=== PATIENT | female | born 1930 | race Caucasian/White ===

== ENCOUNTER 2017-09-05 11:24 | Inpatient (IN) | payer MEDICARE, OTHER ==
[~2017-09-05] VITALS: Ht 160 cm; Wt 78.9 kg
[~2017-09-05 11:24] MED LIST: AMOXICILLIN 50500 M1; AMOXICILLIN 50500 MG PO; ASPIRIN EC81 M1; ASPIRIN EC81 M1 PO; ATENOLOL 25MG T25 M1; ATENOLOL 50MG T50 M1 PO; BISACODYL SUPP10 MG RECTAL; CALCIUM + D SO1 EACH PO; CALCIUM 600 +1 EAC1 PO; CARDIO PO; CARDIZEM CD 30300 M1 PO; CARDIZEM CD180 MG PO; CARTIA XT; CIPRO500 MG PO; CO Q-10100 MG PO; CO Q-1050 MG PO; COLACE100 MG PO; COUMADIN 1MG TAB1 M1 PO; COUMADIN 2 MG TA2 M1 PO; FLAGYL500 M1 PO; FLAGYL500 MG PO; FUROSEMIDE 20 M20 MG; LASIX 20 MG TAB20 MG PO; METAMUCIL PAC1 UDPKT PO; MIACALCIN; MILK OF MA2400 MG/10 PO; MIRALAX17 G1 PO; MIRALAX17 GM PO; MULTIVITAMINS1 EAC7; MULTIVITAMINS1 EAC7 PO; NITROFURANTOIN100 MG PO; OMEGA-31000 M1 PO; OMEPRAZOLE 20 M20 M1; OMEPRAZOLE20 M2 PO; OXYCODONE HCL5 MG PO; PENICILLIN V P500 MG PO; PROZAC10 MG PO; TRAMADOL 50 MG50 MG PO; TUMS; TUMS PO; VITAMIN B-12500 MCG PO; VITAMIN D3400 UNIT PO; XANAX 0.5 MG0.5 MG PO; XANAX XR1 MG PO; ZOCOR 20 MG TAB20 M1 PO; ZOCOR20 MG PO; ZOFRAN4 MG PO; ZPAK PO
[2017-09-05 11:26] VITALS: BP 154/70
[2017-09-05] MEDS ORDERED: XANAX 0.5 MG0.5 MG PO (11:36)
[2017-09-05] MEDS ORDERED: CARTIA XT240 M1 PO (11:36)
[2017-09-05] MEDS ORDERED: NEURONTIN 300300 M1 PO (11:36)
[2017-09-05] MEDS ORDERED: LISINOPRIL5 MG PO (11:37)
[2017-09-05] MEDS ORDERED: AMOXICILLIN 50500 MG PO (11:37)
[2017-09-05] MEDS ORDERED: CARDIO OMEGA B1 EACH PO (11:37)
[2017-09-05] MEDS ORDERED: SUPER B COMPLE150 MG PO (11:37)
[2017-09-05] MEDS ORDERED: VITAMIN E400 UNIT PO (11:37)
[2017-09-05 11:56] LABS: HEMATOCRIT 31.4 % (37.0-47.0); HEMOGLOBIN 10.4 gm/dL (12.0-15.0); MCH 30.4 pg (26.0-34.0); MCHC 33.2 g/dL (28.0-37.0); MCV 91.5 fL (80.0-100.0); MPV 8.1 fl. (7.2-11.1); NUCLEATED RBCS 0 /100WBC; PLATELET COUNT* 324 thou/uL (150-400); RBC 3.43 mil/uL (4.20-5.00); RDW-CV 14.5 % (10.5-14.5); WBC 12.5 thou/uL (4.0-11.0)
[2017-09-05 12:12] LABS: BUN 180 mg/dL (7-18); CREATININE 0.9 mg/dL (0.6-1.3)
[2017-09-05 12:13] LABS: GLUCOSE 180 mg/dL (70-99); LIPASE 61 U/L (73-393); SGOT 14 U/L (15-37); TOTAL BILIRUBIN 0.6 mg/dL (<0.1-1.0)
[2017-09-05 12:14] LABS: ALKALINE PHOSPHATASE 93 U/L (46-116); CALCIUM 8.6 mg/dL (8.5-10.1); MAGNESIUM 1.8 mg/dL (1.8-2.4); SGPT 20 U/L (30-65); TOTAL PROTEIN 7.1 g/dL (6.4-8.2); TROPONIN-I LEVEL <0.06 ng/mL (<0.06)
[2017-09-05 12:16] LABS: ABSOLUTE LYMPHOCYTES 0.3 thou/uL (0.8-5.3); ABSOLUTE MONOCYTES 1.3 thou/uL (0.0-1.2); ANISOCYTOSIS 1+; PLATELET ESTIMATE ADEQUATE; POIKILOCYTOSIS 1+
[2017-09-05 12:17] LABS: ANION GAP 8 mmol/L (7-16); CHLORIDE 104 mmol/L (98-107); CO2 28 mmol/L (21-32); SODIUM 140 mmol/L (136-145)
[2017-09-05 12:20] LABS: APTT 33.1 Seconds (25.0-31.3); PROTIME 19.4 Seconds (9.20-11.50)
[2017-09-05 12:38] LABS: NT-PRO BRAIN NAT PEPTIDE 3203 pg/mL (<300)
[2017-09-05 13:19] VITALS: BP 136/58
[2017-09-05 14:15] VITALS: BP 122/70
--- NOTE | 2017-09-05 15:21 | EKG ---
[place] [address] ELECTROCARDIOGRAM REPORT Name: AMY TIJERINA Room: [address] IN [facility]#: [id number] Admission: 09/05/17 Attend Phys: Ermelinda Hoyt Discharge: Date of : 32 Report #: [id number] THIS REPORT FOR: //name// [facility] ED Test Date: 2017-09-05 Test Time: 11:29:32 Pat Name: AMY TIJERINA Department: Room: Gender: F Can Sealer: [facility] : 1930 Requested By: Abiel Nixon Order Number: [id number] MD: Laci King Measurements Intervals [place] Rate: 91 P: GA: QRS: 1 QRSD: 82 T: 9 QT: 394 QTc: 485 Interpretive Statements Atrial fibrillation Low voltage, precordial leads RSR' in V1 or V2, probably normal variant Borderline T wave abnormalities Compared to ECG 02/23/2017 15:13:26 Low QRS voltage now present RSR' in V1 or V2 now present Ventricular premature complex(es) no longer present T-wave abnormality still present Electronically Signed On 09-05-2017 15:21:05 CDT by Laci King [email or web address] <ELECTRONICALLY SIGNED> By: Laci King MD, [facility] 09/05/17 1521 [id number] [id number] Laci King MD, [facility] /EPI
[2017-09-05 16:00] VITALS: BP 149/65
--- NOTE | 2017-09-05 16:21 | 2DMMODE ---
[place] [address] 2 D/M-MODE ECHOCARDIOGRAM Name: AMY TIJERINA Room: [address] IN [facility]#: [id number] Admission: 09/05/17 Attend Phys: Gurmeet King Discharge: Date of : 32 Date of Service: 09/05/17 1620 Report #: [id number] THIS REPORT FOR: //name// APPROVED REPORT Study performed: 09/05/2017 15:24:42 EXAM: Comprehensive 2D, Doppler, and color-flow Echocardiogram Patient Location: In-Patient Room #: [facility] Status: routine BSA: 1.73 HR: 93 bpm BP: 136/58 mmHg Rhythm: Atrial Fibrillation Other Information Study Quality: Good Indications Atrial Fibrillation Dyspnea 2D Dimensions LVEF(%): 77.74 (>50%) IVSd: 11.69 (7-11mm) LVOT Diam: 20.58 (18-24mm) LVDd: 39.15 mm PWd: 9.02 (7-11mm) Ascending Ao: 29.35 (22-36mm) LVDs: 21.23 (25-40mm) Aortic Root: 27.75 mm Kim's LVEF: 77.74 % Volumes Left Atrial Volume (Systole) LA ESV Index: 55.10 mL/m2 Aortic Valve AoV Peak Fernando.: 2.50 m/s AO Peak Gr.: 25.05 mmHg LVOT Max P.73 mmHg AO Mean Gr.: 13.99 mmHg LVOT Mean P.26 mmHg LVOT Max V: 0.83 m/s AO V2 VTI: 52.25 cm LVOT Mean V: 0.51 m/s LOUANN (VTI): 1.09 cm2 LVOT V1 VTI: 17.19 [place] [address] 2 D/M-MODE ECHOCARDIOGRAM Name: AMY TIJERINA Room: [address] IN [facility].#: [id number] Admission: 09/05/17 Attend Phys: Gurmeet King Discharge: Date of : 32 Date of Service: 09/05/17 1620 Report #: [id number] MV Decel. Time: 193.97 ms MV PHT: 56.25 ms MVA (PHT): 3.91 cm2 TDI Medial E' Fernando.: 0.19 m/s Lateral E' Fernando.: 0.11 m/s Pulmonary Valve PV Peak Fernando.: 1.05 m/s PV Peak Gr.: 4.42 mmHg Tricuspid Valve TR Peak Gr.: 38.31 mmHg RVSP: 43.00 mmHg Left Ventricle The left ventricle is normal size. There is normal LV segmental wall motion. There is normal left ventricular wall thickness. Left ventricular systolic function is normal. The left ventricular ejection fraction is within the normal range. LVEF is 60-65%. Right Ventricle Right ventricle is dilated. The right ventricular systolic function is normal. Pacemaker lead is present in the right ventricle. Atria Left atrium is moderately dilated. Right atrium is severely dilated. Aortic Valve Moderate aortic valve sclerosis. No aortic regurgitation is present. Mild aortic stenosis. Mitral Valve The mitral valve is normal in structure. Mild mitral regurgitation. No evidence of mitral valve stenosis. Tricuspid Valve The tricuspid valve is normal in structure. Mild tricuspid regurgitation. The RVSP is 40-45 mmHg. Pulmonic Valve The pulmonary valve is normal in structure. Trace pulmonic regurgitation. Great Vessels The aortic root is normal in size. IVC [place] [address] 2 D/M-MODE ECHOCARDIOGRAM Name: AMY TIJERINA Room: [address]#: [id number] Admission: 09/05/17 Attend Phys: Gurmeet King Discharge: Date of : 32 Date of Service: 09/05/17 1620 Report #: [id number] collapses with >50% inspiration Pericardium There is no pericardial effusion. <Conclusion> The left ventricle is normal size. There is normal left ventricular wall thickness. Left ventricular systolic function is normal. The left ventricular ejection fraction is within the normal range. Right ventricle is dilated. Left atrium is moderately dilated. Right atrium is severely dilated. Moderate aortic valve sclerosis. No aortic regurgitation is present. Mild aortic stenosis. Mild mitral regurgitation. The tricuspid valve is normal in structure. Mild tricuspid regurgitation. The RVSP is 40-45 mmHg. IVC is normal in size and collapses with >50% inspiration There is no pericardial effusion. There is normal LV segmental wall motion. Pacemaker lead is present in the right ventricle. LVEF is 60-65%. <ELECTRONICALLY SIGNED> By: Laci King MD, FACC 09/05/17 1620 [id number] Laci King MD, FACC /INF
[2017-09-05 17:30] LABS: BE 1.2 mmol/L (-2 to +3); HCO3 25.9 mmol/L (22.0-26.0); PCO2 41.5 mmHg (35.0-45.0); PO2 110.1 mmHg (75.0-100.0); pH 7.413 (7.340-7.450)
[2017-09-05 17:54] LABS: CHOLESTEROL 126 mg/dL (<200); HDL CHOLESTEROL 52 mg/dL (>40); LDL CHOLESTEROL 60 mg/dL (<100); TC:HDL 2.4 Ratio (Not establshd); TRIGLYCERIDE 72 mg/dL (<150); VLDL 14 mg/dL (<40)
[2017-09-05 17:58] LABS: SERUM ASSESSMENT CLEAR
--- NOTE | 2017-09-05 18:39 | NUR ---
PATIENT ADMITTED TO ROOM 312 FROM ER. ALERT AND ORIENTED X 3, FORGETFUL OF YEAR. NO COMPLAINTS OF PAIN. IV SL. [address], 02 SAT 97%. NO SKIN BREAKDOWN NOTED. FALL RISK PROTOCOL IN PLACE. CARDIOLOGY CONS FOR CHF, ECHO ORDERED. CALL LIGHT WITHIN REACH, WILL CONTINUE TO MONITOR. 1530- PATIENT HAD LUNCH AROUND 1330 AND CARDIOLOGY SENIOR INFORMATION SECURITY ENGINEER IN TO SEE PATIENT AROUND 1430. STAFF REPORTED TO THIS NURSE WHILE AT LUNCH THAT PATIENT WAS LETHARGIC AND HARD TO AROUSE WHEN DEPARTMENT ASSISTANT CAME TO ROOM. VITALS STABLE, BLOOD SUGAR ELEVATED. DR. BAEZ NOTIFIED AND CAME TO BEDSIDE. LABS AND CT OF HEAD ORDERED. PATIENT ORIENTED X 3 BUT STILL REMAINED DROWSY. PATIENT RETURNED TO ROOM AND PATIENT MORE ALERT. LABS ORDERED AND DRAWN, ABG'S DONE. DR. BAEZ NOTIFIED OF ECHO RESULTS. 02 TURNED DOWN TO 1L PER ABG RESULTS. DR. BAEZ NOTIFIED OF CT HEAD RESULTS, DOPPLER RESULTS BOTH NEGATIVE. CTA ORDERED BUT PATIENT ALLERGIC TO IODINE. CTA CANCELLED AND VQ SCAN ORDERED AND BEING DONE AT THIS TIME. 02 ON 1L 96%, NO DIFFICULTY NOTED. PATIENT UP TO BSC WITH ASSISTANCE OF 2 GB AND WALKER. UA SENT PER ORDERS. MORE ALERT THIS EVENING. CONS PLACED TO NEURO FOR AMS. FAMILY AND PATIENT UPDATED ON PLAN OF CARE. WILL CONTINUE TO MONITOR.
[2017-09-05 18:50] LABS: URINE BILIRUBIN NEGATIVE (Negative); URINE BLOOD 3+ (Negative); URINE CLARITY CLEAR; URINE COLOR YELLOW; URINE GLUCOSE-RANDOM TRACE (Negative); URINE KETONES NEGATIVE (Negative); URINE LEUKOCYTES-REFLEX NEGATIVE (Negative); URINE NITRITE-REFLEX NEGATIVE (Negative); URINE PROTEIN NEGATIVE (Negative); URINE UROBILINOGEN 0.2 E.U./dl (0.2-1.0)
[2017-09-05 18:58] LABS: BACTERIA-REFLEX >30 Many /HPF (None Seen)
[2017-09-05 18:59] LABS: SQUAMOUS 4-10 Moderate /LPF (0-3); URINE RBC 3-10 Few /HPF (0-2)
[2017-09-05 19:00] LABS: CASTS None Seen /LPF (None Seen); CRYSTALS None Seen /LPF (None Seen); MUCUS None Seen strn/LPF (None Seen); URINE WBC-REFLEX 0-5 Rare /HPF (0-5)
[2017-09-06] VITALS (7 sets, daily range): BP systolic 121–142; BP diastolic 58–69
--- NOTE | 2017-09-06 06:03 | NUR ---
PATIENT SLEPT MOST OF THE NIGHT. IV REMAINS SALINE LOCKED. PATIENT REMAINS ON O2 AT 2L PATIENT SATTING 96-98%. ABOUT 0300 PATIENT WAS PALE AND WAS SWEATY. PATIENT WAS NOT RESPONDING TO HER NAME. AFTER SAYING HER NAME A COUPLE TIMES AND PATTING HER PATIENT DID WAKE UP AND GO TO THE BATHROOM. VITAL SIGNS WERE STABLE AT THIS TIME AND PATIENT APPEARED TO BE OKAY. PATIENT REMAINS IN AFIB ON [place]. PATIENT REMAINS WEAK AND IS UP WITH ASSIST OF TWO TO BEDSIDE COMMODE. WILL CONTINUE TO MONITOR.
--- NOTE | 2017-09-06 09:21 | NUR ---
ASSUMED CARE OF PT AROUND 0730 THIS AM. REFER TO ASSESSMENT. PT NOTED TO BE DROWSY AND DIFFICULT TO AROUSE AT TIME OF ASSESSMENT. SOFT STERNAL RUBS GIVEN TO AROUSE PT AND PT NOTED TO DRIFT BACK TO SLEEP QUICKLY. DISCUSSED PLAN OF CARE WITH PT'S AT BEDSIDE. PT WOKE FOR BREAKFAST AND APPEARED MUCH MORE ALERT. PT QUESTIONING WHY EVERYBODY KEEPS TRYING TO WAKE HER UP AND WONT LET HER SLEEP. STATES SHE THOUGHT YOU GO TO HOSPITAL TO GET REST. DISCUSSED STAFF CONCERNS WITH PT. NO OTHER CONCERNS AT THIS TIME. CLWR. WCTM.
--- NOTE | 2017-09-06 11:30 | NUR ---
MET WITH PT'S SPOUSE, PT WAS SLEEPING. PT LIVES WITH SPOUSE, SHE IS ABLE TO DO MOST OF HER OWN ADLS, WEARS A KNEE BRACE AND USES WALKER. THEY ALSO HAVE A W/C AND LIFT CHAIR. PT USES A WALK IN TUB. SPOUSE DOES COOKING/CLEANING AND ASSISTS PT NEEDED WITH ADLS. PT IS CURRENT WITH [facility] AND WOULD LIKE TO CONTINUE WITH THEM AT [place]. WILL FOLLOW
--- NOTE | 2017-09-06 11:49 | EKG ---
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: [employer]LL[employer] : 1930 Requested By: Gurmeet King Order Number: [id number] Reading MD: Stewart Bishop Measurements Intervals [place] Rate: 92 P: TN: QRS: 17 QRSD: 82 T: -15 QT: 377 QTc: 467 Interpretive Statements Atrial fibrillation Low voltage, precordial leads Compared to ECG 09/05/2017 11:29:32 T-wave abnormality no longer present Electronically Signed On 09-06-2017 11:49:08 CDT by Stewart Bishop [email or web address] <ELECTRONICALLY SIGNED> By: Stewart Bishop MD, FACC 09/06/17 1149 1631 1631 Stewart Bishop MD, [facility] /EPI
--- NOTE | 2017-09-06 16:06 | NUR ---
PT PROGRESSING TOWARDS GOALS THIS SHIFT. TITRATED TO RA. SATS WNL. PT HAS BEEN MORE ALERT THIS SHIFT WITH NO FURTHER EPISODES OF LETHARGY AND DIFFICULTY TO AROUSE. AT BEDSIDE. NO OTHER CONCERNS AT THIS TIME. CLWR. WCTM.
[2017-09-07] VITALS: BP 147/75
[2017-09-07 03:55] VITALS: BP 133/65
--- NOTE | 2017-09-07 05:12 | NUR ---
PT CARE ASSUMED AFTER REPORT. ASSESSMENT COMPLETE. AFIB ON MONITOR. DENIES PAIN. PT FORGETFUL AND CONFUSED AT TIMES. CALLS OUT MULTIPLE TIMES BUT FORGETS WHY SHE CALLED. UP WITH ASSIST X2 TO BSC. FALL PRECAUTIONS IN PLACE INCLUDING BED ALARM. CALL LIGHT IN REACH. BED IN LOWEST POSITION. SLOW TO PROGRESS TOWARDS GOALS.
[2017-09-07 08:00] VITALS: BP 138/83
[2017-09-07 11:47] VITALS: BP 148/72
--- NOTE | 2017-09-07 12:16 | NUR ---
ASSUMED CARE OF PATIENT THIS AM AT 0730. PATIENT IS ALERT AND ORIENTED X 4. SHE DENIES PAIN THIS AM. PATIENT IS TAKING HER ALESSANDRO WELL. SHE C/O SOME SOA WITH ACTIVITY BUT REMAINS ON ROOM AIR. TELE SHOWS CONTINUED AFIB. PATIENT IS NOW UP IN THE CHAIR. WILL CONTINUE TO MONITOR.
--- NOTE | 2017-09-07 15:05 | NUR ---
CM SPOKE TO PATIENT AND SPOUSE TO DISCUSS DISCHARGE PLANNING NEEDS. PATIENTS SPOUSE INFORMS THAT PLAN IS FOR PATIETN TO RETURN HOME AT D/C WITH [facility] AND A BATHAIDE. CM SENT REFERRAL TO [facility]. CM WILL REMAIN AVAILABLE TO ASSIST AND FOLLOW NEEDED.
[2017-09-07 15:36] VITALS: BP 136/52
[2017-09-07 19:36] VITALS: BP 131/62
[2017-09-08] VITALS: BP 156/71
[2017-09-08 04:00] VITALS: BP 147/75
--- NOTE | 2017-09-08 06:09 | NUR ---
ASSESSMENT COMPLETE. PT VERY CONFUSED DURING THE NIGHT. ORIENTED TO SELF. PT DENIES PAIN AND N/V. PT IS ON ROOM AIR WITH ADEQUATE SATS. PT HAS IV IN RIGHT ARM, SALINE LOCKED AND FLUSHES WITHOUT DIFFICULTY. PT IS UP ONE ASSIST WITH WALKER. PT IS FALL RISK, BED ALARM ON. PT IS ON MONITOR. SEE ASSESSMENT AND VITALS FOR OTHER DETAILS. CALL LIGHT WITHIN REACH, WILL CONTINUE PLAN OF CARE
[2017-09-08 08:00] VITALS: BP 136/82
[2017-09-08 14:25] LABS: HEMATOCRIT 31.2 % (37.0-47.0); HEMOGLOBIN 10.2 gm/dL (12.0-15.0); MCH 29.7 pg (26.0-34.0); MCHC 32.6 g/dL (28.0-37.0); MCV 91.2 fL (80.0-100.0); MPV 7.9 fl. (7.2-11.1); NUCLEATED RBCS 0 /100WBC; PLATELET COUNT* 331 thou/uL (150-400); RBC 3.43 mil/uL (4.20-5.00); RDW-CV 14.5 % (10.5-14.5); WBC 14.3 thou/uL (4.0-11.0)
[2017-09-08 14:31] LABS: CALCIUM 8.8 mg/dL (8.5-10.1); CREATININE 1.1 mg/dL (0.6-1.3); POTASSIUM 3.7 mmol/L (3.5-5.1)
[2017-09-08 15:01] LABS: ABSOLUTE LYMPHOCYTES 0.7 thou/uL (0.8-5.3); ABSOLUTE MONOCYTES 0.6 thou/uL (0.0-1.2)
[2017-09-08 15:02] LABS: ANISOCYTOSIS Occasional; HYPOCHROMASIA Occasional; PLATELET ESTIMATE ADEQUATE
[2017-09-08] MEDS ORDERED: ARICEPT 5 MG TAB5 MG PO (15:38)
[2017-09-08] MEDS ORDERED: SYMBICORT160 MCG/4. INH (15:41)
[2017-09-08] MEDS ORDERED: CEFDINIR300 MG PO (15:41)
[2017-09-08 16:00] VITALS: BP 176/80
--- NOTE | 2017-09-08 16:09 | NUR ---
HH orders faxed [facility]
[2017-09-08 17:11] VITALS: BP 130/59
--- NOTE | 2017-09-08 18:45 | NUR ---
ASSUMED CARE THIS AM. A/O X 4, NO DISCOMFORT REPORTED. EXT ASSIST WITH TRANSFERS, WITH GAIT BELT AND WALKER. WORKED WELL WITH THERAPY, PROGRESSING TOWARD D/C GOALS, COMPLIANT WITH MEDS AND CARES. DISCHARGED AT ORDERED, FOLLOW UP APPTS, SCRIPTS AND DISCHARGE INSTRUCTIONS DISCUSSED WITH AND GIVEN TO PATIENT, AT BEDSIDE, BOTH PARTIES DENY QUESTIONS, PERSONAL EFFECTS GATHERED, ACCOUNTED FOR, IN COMPANY WITH . PATIENT TRANSPORTED TO FRONT ENTRANCE VIA WHEELCHAIR IN STABLE CONDITION.
== END 2017-09-08 17:30 | disposition home health service (06) | DRG 177 ==
LOC: M.ERS 11:24 → M.TBA-ER 12:39 → M.3W 12:39
PROVIDERS: Family Medicine; Internal Medicine; ADMIT Internal Medicine
DX: J69.0 Pneumonitis due to inhalation of food and vomit (principal); J96.00 Acute respiratory failure, unspecified whether with hypoxia or hypercapnia; I50.33 Acute on chronic diastolic (congestive) heart failure; J44.1 Chronic obstructive pulmonary disease with (acute) exacerbation; N39.0 Urinary tract infection, site not specified; I11.0 Hypertensive heart disease with heart failure; F03.90 Unspecified dementia, unspecified severity, without behavioral disturbance, psychotic disturbance, mood disturbance, and anxiety; I48.91 Unspecified atrial fibrillation; K21.9 Gastro-esophageal reflux disease without esophagitis; Z96.643 Presence of artificial hip joint, bilateral; Z96.1 Presence of intraocular lens; Z96.651 Presence of right artificial knee joint; Z95.0 Presence of cardiac pacemaker; Z90.710 Acquired absence of both cervix and uterus; Z87.891 Personal history of nicotine dependence; Z90.49 Acquired absence of other specified parts of digestive tract; Z98.42 Cataract extraction status, left eye; Z98.41 Cataract extraction status, right eye; Z79.01 Long term (current) use of anticoagulants; Z79.899 Other long term (current) drug therapy; Z91.041 Radiographic dye allergy status; Z82.49 Family history of ischemic heart disease and other diseases of the circulatory system

== ENCOUNTER 2017-09-09 07:51 | Inpatient (IN) | payer MEDICARE, OTHER ==
[2017-09-09] VITALS (16 sets, daily range): BP systolic 88–176; BP diastolic 46–95
[~2017-09-09] VITALS: Ht 152.4 cm; Wt 76.5 kg
[~2017-09-09 07:51] MED LIST changes: +ARICEPT 5 MG TAB5 MG PO; +CARDIO OMEGA B1 EACH PO; +CARTIA XT240 M1 PO; +CEFDINIR300 MG PO; +LISINOPRIL5 MG PO; +NEURONTIN 300300 M1 PO; +SUPER B COMPLE150 MG PO; +SYMBICORT160 MCG/4. INH; +VITAMIN E400 UNIT PO
[2017-09-09 08:30] LABS: BE 6.2 mmol/L (-2 to +3); HCO3 31.9 mmol/L (22.0-26.0); pH 7.416 (7.340-7.450)
[2017-09-09 08:32] LABS: PCO2 50.8 mmHg (35.0-45.0)
[2017-09-09 08:33] LABS: PO2 133.4 mmHg (75.0-100.0)
[2017-09-09 08:40] LABS: HEMATOCRIT 35.4 % (37.0-47.0); HEMOGLOBIN 11.8 gm/dL (12.0-15.0); MCH 29.6 pg (26.0-34.0); MCHC 33.2 g/dL (28.0-37.0); MCV 89.3 fL (80.0-100.0); MPV 7.7 fl. (7.2-11.1); NUCLEATED RBCS 0 /100WBC; RBC 3.97 mil/uL (4.20-5.00); RDW-CV 14.1 % (10.5-14.5); WBC 18.6 thou/uL (4.0-11.0)
[2017-09-09 08:43] LABS: PLATELET COUNT* 417 thou/uL (150-400)
[2017-09-09 08:50] LABS: ANION GAP 4 mmol/L (7-16); BUN 21 mg/dL (7-18); CALCIUM 9.1 mg/dL (8.5-10.1); CHLORIDE 98 mmol/L (98-107); CO2 36 mmol/L (21-32); CREATININE 0.9 mg/dL (0.6-1.3); GLUCOSE 141 mg/dL (70-99); POTASSIUM 3.1 mmol/L (3.5-5.1); SODIUM 138 mmol/L (136-145)
[2017-09-09 08:52] LABS: APTT 24.6 Seconds (25.0-31.3); INR 1.8; PROTIME 17.4 Seconds (9.20-11.50)
[2017-09-09 09:06] LABS: ALBUMIN 3.3 g/dL (3.4-5.0); ALKALINE PHOSPHATASE 101 U/L (46-116); CK-MB MASS 2.6 ng/mL (<0.5-3.6); LIPASE 58 U/L (73-393); MAGNESIUM 1.9 mg/dL (1.8-2.4); NT-PRO BRAIN NAT PEPTIDE 4830 pg/mL (<300); SGOT 23 U/L (15-37); SGPT 41 U/L (30-65); TOTAL BILIRUBIN 0.8 mg/dL (<0.1-1.0); TOTAL PROTEIN 7.3 g/dL (6.4-8.2); TROPONIN-I LEVEL <0.06 ng/mL (<0.06)
[2017-09-09 09:13] LABS: ABSOLUTE LYMPHOCYTES 1.7 thou/uL (0.8-5.3); ABSOLUTE MONOCYTES 0.4 thou/uL (0.0-1.2); ABSOLUTE NEUTROPHILS 16.6 thou/uL (1.6-8.1); PLATELET ESTIMATE ADEQUATE
[2017-09-09 09:19] LABS: URINE BILIRUBIN NEGATIVE (Negative); URINE BLOOD 3+ (Negative); URINE CLARITY CLEAR; URINE COLOR YELLOW; URINE GLUCOSE-RANDOM NEGATIVE (Negative); URINE KETONES NEGATIVE (Negative); URINE LEUKOCYTES-REFLEX NEGATIVE (Negative); URINE NITRITE-REFLEX NEGATIVE (Negative); URINE PROTEIN NEGATIVE (Negative); URINE SPECIFIC GRAVITY 1.015 (1.005-1.030); URINE UROBILINOGEN 0.2 E.U./dl (0.2-1.0)
[2017-09-09 09:27] LABS: BACTERIA-REFLEX 1-9 Few /HPF (None Seen); CASTS None Seen /LPF (None Seen); CRYSTALS None Seen /LPF (None Seen); MUCUS None Seen strn/LPF (None Seen); TRANSITIONAL EPITHEL CELL 4-10 Moderate /LPF (None Seen); URINE WBC-REFLEX 0-5 Rare /HPF (0-5)
[2017-09-09 09:31] LABS: SQUAMOUS 0-3 Few /LPF (0-3)
[2017-09-09 12:21] LABS: HCO3 31.3 mmol/L (22.0-26.0); PCO2 38.7 mmHg (35.0-45.0); pH 7.526 (7.340-7.450)
--- NOTE | 2017-09-09 13:22 | EKG ---
[place] [address] ELECTROCARDIOGRAM REPORT Name: AMY TIJERINA Room: [address] IN [facility]#: [id number] Admission: 09/09/17 Attend Phys: Tawny Mendoza Discharge: Date of : 31 Report #: [id number] THIS REPORT FOR: //name// [facility] ED Test Date: 2017-09-09 Test Time: 07:56:01 Pat Name: AMY TIJERINA Department: Room: Gender: F Fagoter: [place] : 1930 Requested By: Abiel Nixon Order Number: [id number] MD: Stewart Bishop Measurements Intervals [place] Rate: 116 P: [place]: QRS: 5 QRSD: 92 T: 22 QT: 341 QTc: 474 Interpretive Statements Atrial fibrillation Ventricular premature complex Nonspecific repol abnormality, diffuse leads Compared to ECG 09/05/2017 16:31:26 Ventricular premature complex(es) now present Early repolarization now present Electronically Signed On 09-09-2017 13:22:15 CDT by Stewart Bishop [email or web address] <ELECTRONICALLY SIGNED> By: Stewart Bishop MD, [facility] 09/09/17 1322 [phone] Stewart Bishop MD, [facility] /EPI
[2017-09-10] VITALS (18 sets, daily range): BP systolic 121–158; BP diastolic 50–95
[2017-09-10 03:14] LABS: ABSOLUTE LYMPHOCYTES 0.5 thou/uL (0.8-5.3); ABSOLUTE MONOCYTES 0.5 thou/uL (0.0-1.2); ABSOLUTE NEUTROPHILS 13.7 thou/uL (1.6-8.1); BASOPHILS 0.1 %; HEMATOCRIT 27.1 % (37.0-47.0); LYMPHOCYTES 3.3 %; MCH 29.9 pg (26.0-34.0); MCHC 33.1 g/dL (28.0-37.0); MCV 90.3 fL (80.0-100.0); MONOCYTES 3.7 %; MPV 7.7 fl. (7.2-11.1); NUCLEATED RBCS 0 /100WBC; POLYS 92.9 %; RDW-CV 14.1 % (10.5-14.5); WBC 14.7 thou/uL (4.0-11.0)
[2017-09-10 03:17] LABS: PLATELET COUNT* 261 thou/uL (150-400)
[2017-09-10 03:42] LABS: ALBUMIN 2.1 g/dL (3.4-5.0); CALCIUM 7.7 mg/dL (8.5-10.1); CREATININE 0.9 mg/dL (0.6-1.3); POTASSIUM 3.8 mmol/L (3.5-5.1); TOTAL BILIRUBIN 0.6 mg/dL (<0.1-1.0); TOTAL PROTEIN 5.2 g/dL (6.4-8.2)
--- NOTE | 2017-09-10 07:27 | CON ---
[address] [address] CONSULTATION Name: AMY TIJERINA Room: [address] IN .R.#: [id number] Admission: 09/09/17 Attend Phys: Tawny Mendoza Discharge: Date of : 31 Report #: [id number] THIS REPORT FOR: //name// CC: Poppy Ceron DATE OF SERVICE: 09/09/2017 CONSULT REQUESTED BY: Yoseph Ceron MD. INDICATION FOR CONSULTATION: Acute hypercarbic respiratory failure. HISTORY OF PRESENT ILLNESS: An 87-year-old female with past medical history as I mentioned below. The patient does have a history of non-small cell carcinoma of the lung and has had resection of part of her left lung for this in the past. The patient also does have atrial fibrillation, has been on anticoagulation with Coumadin at home. Note that the INR today, however, is not therapeutic. The patient also does have a pacemaker in place. The patient was only recently admitted to this hospital, was treated for shortness of breath. The patient did receive Solu-Medrol. She did receive a couple doses of Levaquin and subsequently also did receive amoxicillin during the last hospitalization. The patient was in fact only just discharged yesterday. The patient has now presented again with acute shortness of breath. The patient is reported to be wide awake on initial presentation. The patient was initially on a nasal cannula; however, developed progressive increasing respiratory distress requiring endotracheal intubation. The patient is also febrile with temperature seeing a low grade elevation to around 37.7. Her blood pressure has been running on the lower side, last recorded 96/48. The patient, however, is not on pressors. As noted below, the patient's pupils are pinpoint. The patient, however, has not received any narcotics. She did receive etomidate for endotracheal intubation and as noted above, she is on propofol. The patient is in an irregular atrial fibrillation rhythm. The patient is on the ventilator and therefore, she is not able to provide further history or review of systems. PAST MEDICAL HISTORY: Atrial fibrillation, on Coumadin; however, INR today is subtherapeutic. It was therapeutic when last checked a couple of days ago. Resection of part of the left lung for non-small cell carcinoma of the lung. The patient is followed by a physician named at [facility]. She was told that there is a new spot on her lung when last CT was done. Status post pacemaker placement; gastrointestinal bleed, likely lower gastrointestinal bleed when her INR was on the higher side; previously hysterectomy, T and A, appendectomy, cataract surgery, gastroesophageal reflux disease, chronic ear infections, UTI. The patient's last available echocardiogram is from just a [place] [address] CONSULTATION Name: TIJERINAAMY Room: [address] IN [facility]#: [id number] Admission: 09/09/17 Attend Phys: Tawny Mendoza Discharge: Date of : 31 Report #: [id number] left ventricular ejection fraction of 60-65%, pulmonary artery systolic on this echo was 40-45. The patient mentioned as having COPD on the records previously. I do not, however, have previous PFTs available. The patient is not on any inhalers and is not on oxygen at home. SOCIAL HISTORY: The patient is reported to have smoked in the past. Obviously I am unable to ask the patient directly at this time. The patient's family state that they think that she smoked for around 10 years. There is no known history of heavy alcohol use or illegal drug use. MEDICATIONS: Current medications listed in [facility] reviewed. [facility]. ALLERGIES: IODINE. FAMILY HISTORY: There is no pertinent family history. PHYSICAL EXAMINATION: GENERAL: The patient is sedated with propofol running at 15. VITAL SIGNS: She has a pulse of 92, irregular, with a blood pressure of 96/48. She is saturating 99%. She is on 45% FiO2 with a tidal volume of 500, PEEP is 5. Respiratory rate is set at 14. Her temperature is 37.3. She did have a fever up to 37.7 earlier. HEENT: Head is normocephalic and atraumatic. Pupils are bilaterally constricted, equal. Endotracheal tube appears to be in good position. NECK: Does not show raised JVP, asymmetry, mass or lymph nodes. She does have a left IJ central line in place. CHEST: Symmetrical expansion on inspection and palpation. On auscultation, chest is clear. HEART: Irregular. There is no murmur. ABDOMEN: Soft and nontender. EXTREMITIES: Lower extremities show no edema, no calf tenderness. SKIN: Dry and intact. NEUROLOGICAL: Limited at this time due to sedation. The patient is reported to not have any focal deficit and be fully awake on initial presentation. LABORATORY DATA: The patient's chest x-ray does show bilateral interval development of pulmonary infiltrates. The same infiltrates are not seen on the x-ray done on the 9th of this month. The patient's arterial blood gas, which does show an elevation in pH, which is likely due to a low potassium level in [facility] reviewed. Arterial blood gas done earlier today consistent with acute hypercarbic respiratory failure also in [facility] reviewed. The patient's chemistries which do show low potassium level and a borderline magnesium level in [facility] reviewed. The patient's CBC, which does show leukocytosis in [facility] reviewed. INR as mentioned is 1.8. Urinalysis in [facility] reviewed. [address] [address] CONSULTATION Name: AMY TIJERINA Room: [address] IN [facility].#: [id number] Admission: 09/09/17 Attend Phys: Tawny Mendoza Discharge: Date of : 31 Report #: [id number] ASSESSMENT AND PLAN: 1. Acute hypercarbic respiratory failure. At this time, we will continue current ventilator settings. The higher pH is likely due to low potassium level. We will repeat an arterial blood gas tomorrow once the potassium has been replaced. The patient does take benzodiazepine at home and her blood pressure is also running on the lower side. We will therefore her take her off propofol infusion. As for now, ordered p.r.n. Versed as well as fentanyl as the patient's sedation needs are not high. If needed, we certainly can add Versed infusion. 2. Pulmonary infiltrates with hypotension/fever. Increase in pulmonary vascular congestion can also give this picture on the chest x-ray; however, it is noted that the patient is oxygenating and ventilating adequately at this time. I, therefore, agree with continuing IV fluids as currently prescribed. I have ordered more cultures and serologies. I agree with Zosyn. Pending further cultures, I added vancomycin. 3. Non-small cell carcinoma of the lung, status post resection. See discussion above. The patient would need a followup CT chest without contrast. Depending on how she does, we will consider either later this admission or deferred for outpatient. 4. Possible bronchospasm. She is not bronchospastic on my exam now. She does have a previous history of smoking as mentioned above. There is no definite history of chronic obstructive pulmonary disease. She is on Solu-Medrol. I continued for today. If she continues to do well, then I will consider tapering steroids tomorrow morning. 5. Atrial fibrillation, on Coumadin at home. INR is subtherapeutic today. Considering acute respiratory decompensation, therefore I will also do venous Dopplers. 6. Pinpoint pupil. These are not fully explained at this time. I did not order a CT head at this time as the patient is reported to be fully awake and not have neurological deficit on initial presentation. We will see how she does once she is off propofol infusion. In case the patient does not wake up or has a focal deficit, then I will consider obtaining a CT head. Otherwise, her home anticoagulation could be resumed. 7. History of gastroesophageal reflux disease. The patient is on IV Protonix. 8. Clostridium difficile prophylaxis. We will add Florastor. The patient remains critically ill at this time. Total time spent providing critical care to this patient today is 45 minutes. <ELECTRONICALLY SIGNED> By: Leah Hilario MD 09/10/17 0727 1408 [id number] Bailon MD /nt
[2017-09-10 08:58] LABS: BE 3.8 mmol/L (-2 to +3); HCO3 26.9 mmol/L (22.0-26.0); PCO2 34.9 mmHg (35.0-45.0); PO2 79.6 mmHg (75.0-100.0); pH 7.505 (7.340-7.450)
[2017-09-11] VITALS (19 sets, daily range): BP systolic 145–189; BP diastolic 63–105
[2017-09-11 04:51] LABS: ABSOLUTE LYMPHOCYTES 0.5 thou/uL (0.8-5.3); ABSOLUTE MONOCYTES 0.6 thou/uL (0.0-1.2); ABSOLUTE NEUTROPHILS 12.9 thou/uL (1.6-8.1); BASOPHILS 0.3 %; HEMATOCRIT 26.7 % (37.0-47.0); HEMOGLOBIN 8.8 gm/dL (12.0-15.0); LYMPHOCYTES 3.3 %; MCH 30.1 pg (26.0-34.0); MCHC 33.1 g/dL (28.0-37.0); MCV 90.9 fL (80.0-100.0); MONOCYTES 4.5 %; MPV 8.1 fl. (7.2-11.1); NUCLEATED RBCS 0 /100WBC; PLATELET COUNT* 258 thou/uL (150-400); POLYS 91.9 %; RBC 2.93 mil/uL (4.20-5.00); RDW-CV 14.2 % (10.5-14.5)
[2017-09-11 05:04] LABS: CALCIUM 7.6 mg/dL (8.5-10.1); CREATININE 0.7 mg/dL (0.6-1.3)
[2017-09-11 10:45] LABS: BE 0.6 mmol/L (-2 to +3); HCO3 24.3 mmol/L (22.0-26.0); PCO2 35.6 mmHg (35.0-45.0); PO2 112.1 mmHg (75.0-100.0); pH 7.452 (7.340-7.450)
[2017-09-12] VITALS (13 sets, daily range): BP systolic 137–183; BP diastolic 69–95
[2017-09-12 03:57] LABS: HEMATOCRIT 28.3 % (37.0-47.0); HEMOGLOBIN 9.2 gm/dL (12.0-15.0); MCH 29.4 pg (26.0-34.0); MCHC 32.7 g/dL (28.0-37.0); MCV 89.9 fL (80.0-100.0); MPV 7.9 fl. (7.2-11.1); RBC 3.15 mil/uL (4.20-5.00); RDW-CV 14.6 % (10.5-14.5); WBC 12.9 thou/uL (4.0-11.0)
[2017-09-12 04:04] LABS: CALCIUM 7.7 mg/dL (8.5-10.1); CREATININE 0.7 mg/dL (0.6-1.3); POTASSIUM 3.4 mmol/L (3.5-5.1)
[2017-09-12 08:43] LABS: BE -0.3 mmol/L (-2 to +3); HCO3 22.8 mmol/L (22.0-26.0); PO2 119.5 mmHg (75.0-100.0); pH 7.471 (7.340-7.450)
[2017-09-12 11:27] LABS: INR 1.3; PROTIME 12.6 Seconds (9.20-11.50)
[2017-09-13] VITALS: BP 162/89
[2017-09-13 02:00] VITALS: BP 163/90
[2017-09-13 04:53] LABS: INR 1.8; PROTIME 17.1 Seconds (9.20-11.50)
[2017-09-13 05:35] LABS: BE 0.6 mmol/L (-2 to +3); HCO3 25.6 mmol/L (22.0-26.0); PCO2 42.7 mmHg (35.0-45.0); pH 7.395 (7.340-7.450)
[2017-09-13 05:38] LABS: PO2 33.3 mmHg (75.0-100.0)
[2017-09-13 06:04] VITALS: BP 174/87
[2017-09-13 07:49] VITALS: BP 177/83
[2017-09-13 12:00] VITALS: BP 164/72
[2017-09-13 21:07] VITALS: BP 165/86
[2017-09-14] VITALS: BP 170/84
[2017-09-14 04:00] VITALS: BP 165/76
[2017-09-14 05:04] LABS: HEMOGLOBIN 9.5 gm/dL (12.0-15.0); MCH 29.4 pg (26.0-34.0); MCHC 32.6 g/dL (28.0-37.0); MPV 8.3 fl. (7.2-11.1); NUCLEATED RBCS 0 /100WBC; PLATELET COUNT* 275 thou/uL (150-400); RBC 3.22 mil/uL (4.20-5.00); RDW-CV 14.4 % (10.5-14.5); WBC 15.4 thou/uL (4.0-11.0)
[2017-09-14 05:11] LABS: CALCIUM 8.3 mg/dL (8.5-10.1); CREATININE 0.7 mg/dL (0.6-1.3); POTASSIUM 3.5 mmol/L (3.5-5.1)
[2017-09-14 06:35] LABS: ABSOLUTE LYMPHOCYTES 1.5 thou/uL (0.8-5.3); ABSOLUTE MONOCYTES 0.6 thou/uL (0.0-1.2); ABSOLUTE NEUTROPHILS 13.2 thou/uL (1.6-8.1); METAMYELOCYTES 1 %; PLATELET ESTIMATE ADEQUATE; POLYCHROMASIA 1+
[2017-09-14 08:00] VITALS: BP 168/84
[2017-09-14 10:20] LABS: % SATURATION 29 % (20-39); IRON 80 ug/dL (50-175)
[2017-09-14 11:56] VITALS: BP 171/78
[2017-09-14 12:42] LABS: URINE BILIRUBIN NEGATIVE (Negative); URINE BLOOD 3+ (Negative); URINE CLARITY CLEAR; URINE COLOR YELLOW; URINE GLUCOSE-RANDOM NEGATIVE (Negative); URINE KETONES NEGATIVE (Negative); URINE LEUKOCYTES-REFLEX NEGATIVE (Negative); URINE NITRITE-REFLEX NEGATIVE (Negative); URINE PROTEIN TRACE (Negative); URINE SPECIFIC GRAVITY 1.015 (1.005-1.030); URINE UROBILINOGEN 0.2 E.U./dl (0.2-1.0)
[2017-09-14 13:05] LABS: BACTERIA-REFLEX 1-9 Few /HPF (None Seen); URINE RBC 3-10 Few /HPF (0-2); YEAST-REFLEX Present (None Seen)
[2017-09-14 13:06] LABS: CRYSTALS None Seen /LPF (None Seen); HYALINE CASTS 0-3 Few /LPF (None Seen); MUCUS None Seen strn/LPF (None Seen); SQUAMOUS 4-10 Moderate /LPF (0-3); URINE WBC-REFLEX 0-5 Rare /HPF (0-5)
[2017-09-14 17:39] VITALS: BP 200/84
[2017-09-14 20:00] VITALS: BP 181/92
[2017-09-15 00:01] VITALS: BP 108/69; BP 153/99
[2017-09-15 04:00] VITALS: BP 145/71
[2017-09-15 05:17] LABS: HEMATOCRIT 29.4 % (37.0-47.0); HEMOGLOBIN 9.7 gm/dL (12.0-15.0); MCH 29.7 pg (26.0-34.0); MCHC 32.8 g/dL (28.0-37.0); MCV 90.3 fL (80.0-100.0); MPV 8.6 fl. (7.2-11.1); RBC 3.26 mil/uL (4.20-5.00); RDW-CV 14.5 % (10.5-14.5); WBC 19.3 thou/uL (4.0-11.0)
[2017-09-15 05:23] LABS: INR 2.4; PROTIME 23.5 Seconds (9.20-11.50)
[2017-09-15 05:38] LABS: ALBUMIN 2.7 g/dL (3.4-5.0); CALCIUM 8.1 mg/dL (8.5-10.1); CREATININE 0.8 mg/dL (0.6-1.3); MAGNESIUM 2.2 mg/dL (1.8-2.4); TOTAL BILIRUBIN 0.7 mg/dL (<0.1-1.0); TOTAL PROTEIN 5.8 g/dL (6.4-8.2)
[2017-09-15 09:30] VITALS: BP 160/68
[2017-09-15 12:04] VITALS: BP 128/53
[2017-09-15 15:39] VITALS: BP 172/94
[2017-09-15 21:11] VITALS: BP 171/91
[2017-09-16] VITALS (7 sets, daily range): BP systolic 123–155; BP diastolic 55–93
[2017-09-16 04:32] LABS: HEMATOCRIT 29.6 % (37.0-47.0); HEMOGLOBIN 9.6 gm/dL (12.0-15.0); INR 2.1; MCH 29.4 pg (26.0-34.0); MCHC 32.5 g/dL (28.0-37.0); MCV 90.5 fL (80.0-100.0); MPV 8.3 fl. (7.2-11.1); PROTIME 20.1 Seconds (9.20-11.50); RBC 3.27 mil/uL (4.20-5.00); RDW-CV 14.2 % (10.5-14.5); WBC 21.1 thou/uL (4.0-11.0)
[2017-09-16 04:35] LABS: ALBUMIN 2.8 g/dL (3.4-5.0); CALCIUM 8.4 mg/dL (8.5-10.1); CREATININE 0.9 mg/dL (0.6-1.3); MAGNESIUM 2.3 mg/dL (1.8-2.4); POTASSIUM 3.6 mmol/L (3.5-5.1); TOTAL BILIRUBIN 0.9 mg/dL (<0.1-1.0); TOTAL PROTEIN 5.9 g/dL (6.4-8.2)
[2017-09-17 04:00] VITALS: BP 125/77
[2017-09-17 06:03] LABS: HEMATOCRIT 23.7 % (37.0-47.0); HEMOGLOBIN 7.7 gm/dL (12.0-15.0); MCH 29.3 pg (26.0-34.0); MCHC 32.6 g/dL (28.0-37.0); MPV 8.5 fl. (7.2-11.1); RBC 2.63 mil/uL (4.20-5.00); RDW-CV 14.4 % (10.5-14.5); WBC 18.2 thou/uL (4.0-11.0)
[2017-09-17 06:15] LABS: CALCIUM 7.7 mg/dL (8.5-10.1); CREATININE 0.7 mg/dL (0.6-1.3); INR 2.2; MAGNESIUM 2.2 mg/dL (1.8-2.4); POTASSIUM 3.3 mmol/L (3.5-5.1); PROTIME 21.4 Seconds (9.20-11.50)
[2017-09-17 08:00] VITALS: BP 128/54
[2017-09-17 12:13] VITALS: BP 128/55
[2017-09-17 15:35] VITALS: BP 117/51
[2017-09-17 20:54] VITALS: BP 138/60
[2017-09-18] VITALS: BP 135/60
[2017-09-18 04:00] VITALS: BP 117/54
[2017-09-18 06:34] LABS: HEMOGLOBIN 7.8 gm/dL (12.0-15.0); MCH 29.9 pg (26.0-34.0); MCHC 32.7 g/dL (28.0-37.0); MCV 91.3 fL (80.0-100.0); MPV 7.9 fl. (7.2-11.1); RBC 2.62 mil/uL (4.20-5.00); RDW-CV 14.6 % (10.5-14.5); WBC 17.3 thou/uL (4.0-11.0)
[2017-09-18 06:52] LABS: ALBUMIN 2.2 g/dL (3.4-5.0); CALCIUM 8.2 mg/dL (8.5-10.1); CREATININE 0.7 mg/dL (0.6-1.3); POTASSIUM 4.7 mmol/L (3.5-5.1); TOTAL BILIRUBIN 0.6 mg/dL (<0.1-1.0); TOTAL PROTEIN 4.9 g/dL (6.4-8.2)
[2017-09-18 07:08] LABS: INR 2.4; PROTIME 23.3 Seconds (9.20-11.50)
[2017-09-18 08:00] VITALS: BP 146/64
[2017-09-18 12:30] VITALS: BP 137/52
[2017-09-18] MEDS ORDERED: PROTONIX40 M1 PO (14:44)
[2017-09-18] MEDS ORDERED: DUONEB 2.5-0.5 M3 ML INH (14:46)
[2017-09-18] MEDS ORDERED: AUGMENTIN 875-1 EACH PO (14:47)
[2017-09-18 16:00] VITALS: BP 121/55
--- NOTE | 2017-09-25 15:21 | CON ---
[address] [address] CONSULTATION Name: AMY TIJERINA Room: [address] IN M.R.#: [id number] Admission: 09/09/17 Attend Phys: Tawny Mendoza Discharge: 09/18/17 Date of : 31 Report #: [id number] THIS REPORT FOR: //name// CC: Poppy Spauldingormick Yoseph Ceron DATE OF SERVICE: 09/18/2017 REASON FOR CONSULTATION: Evaluation and recommendations regarding post-acute rehabilitation in an 87-year-old female admitted with acute hypoxic respiratory failure with significant improvement; bacterial pneumonia, previously on IV antibiotics, but switched to p.o.; COPD exacerbation; recent UTI with hematuria; frailty; debility; alterations in activities of daily living; multiple medical comorbidities, who has progressed well with physical and occupational therapies over the last several days. Previous level of function was modified lyojsiyvtnh-yy-zvkpdastuak with activities of daily living. Current level of function is cpjfvpw-le-bntnrnmh assistance depending on therapy, activity and time of day. She does have an old knee injury that does limit her in some ways. She does live at home with her , does have an accessible house. LABORATORY DATA AND MEDICATIONS: Reviewed. PAST MEDICAL AND SURGICAL HISTORY: Pacemaker, borderline diabetic, atrial fibrillation, bilateral hip replacements x 2, hysterectomy, T and A, appendectomy, previous history of lung cancer, right total knee arthroplasty, bilateral cataracts, GERD, chronic ear infections, recurrent UTIs. FAMILY HISTORY: Heart disease. SOCIAL HISTORY: No tobacco, alcohol or illicit drug use. She did previously smoke, but has now quit greater than 20 years ago. REVIEW OF SYSTEMS: A 14-point review of systems is done, is negative except as mentioned in HPI, specifically no fever, chest pain, shortness of breath, abdominal pain or distention. PHYSICAL EXAMINATION: GENERAL: Alert, oriented, in no apparent distress. VITAL SIGNS: Reviewed and are stable. HEENT: Head atraumatic, normocephalic. Pupils equal, round, reactive. ABDOMEN: Soft, nontender, nondistended. NEUROLOGIC: Cranial nerves 2-12 are grossly intact with no focal neuro deficits. ASSESSMENT: 1. Status post debility due to acute hypoxic respiratory failure, [place] [address] CONSULTATION Name: AMY TIJERINA Room: [address] IN [facility].#: [id number] Admission: 09/09/17 Attend Phys: Tawny Mendoza Discharge: 09/18/17 Date of : 31 Report #: [id number] pneumonia, chronic obstructive pulmonary disease exacerbation and a recent urinary tract infection. 2. Debility with alterations in activities of daily living and mobility. PLAN: 1. Recommend admission to inpatient rehabilitation and facilitate safe discharge home. 2. PT, OT, speech and language, case management, nursing and HIMS to make evaluations and recommendations. <ELECTRONICALLY SIGNED> By: Mireille Espinosa DO 09/25/17 1521 1647 Kimo Espinosa DO /nt
== END 2017-09-18 18:23 | DRG 208 ==
LOC: M.ERS 07:51 → M.TBA-ER 10:20 → M.ICU 10:20 → M.2W 09-13 18:30
PROVIDERS: Family Medicine; Internal Medicine; Internal Medicine Critical Care Medicine; Internal Medicine Pulmonary Disease; Nurse Practitioner Family; ADMIT Internal Medicine
PROC: 0BH17EZ Insertion of Endotracheal Airway into Trachea, Via Natural or Artificial Opening (ICD-10-PCS; principal; 2017-09-09)
PROC: 05HN33Z Insertion of Infusion Device into Left Internal Jugular Vein, Percutaneous Approach (ICD-10-PCS; principal; 2017-09-09)
PROC: 5A1945Z Respiratory Ventilation, 24-96 Consecutive Hours (ICD-10-PCS; principal; 2017-09-09)
DX: J96.02 Acute respiratory failure with hypercapnia (principal); J69.0 Pneumonitis due to inhalation of food and vomit; J44.1 Chronic obstructive pulmonary disease with (acute) exacerbation; J44.0 Chronic obstructive pulmonary disease with (acute) lower respiratory infection; E87.2 Acidosis; E44.0 Moderate protein-calorie malnutrition; J96.21 Acute and chronic respiratory failure with hypoxia; J96.22 Acute and chronic respiratory failure with hypercapnia; I48.91 Unspecified atrial fibrillation; K21.9 Gastro-esophageal reflux disease without esophagitis; Z96.643 Presence of artificial hip joint, bilateral; I95.9 Hypotension, unspecified; I25.10 Atherosclerotic heart disease of native coronary artery without angina pectoris; D64.9 Anemia, unspecified; I35.0 Nonrheumatic aortic (valve) stenosis; E87.6 Hypokalemia; K80.20 Calculus of gallbladder without cholecystitis without obstruction; R73.9 Hyperglycemia, unspecified; I27.20 Pulmonary hypertension, unspecified; Z95.0 Presence of cardiac pacemaker; Z90.710 Acquired absence of both cervix and uterus; Z87.440 Personal history of urinary (tract) infections; Z90.49 Acquired absence of other specified parts of digestive tract; Z79.899 Other long term (current) drug therapy; Z79.01 Long term (current) use of anticoagulants; Z91.041 Radiographic dye allergy status; Z85.118 Personal history of other malignant neoplasm of bronchus and lung; Z98.42 Cataract extraction status, left eye; Z98.41 Cataract extraction status, right eye; Z87.891 Personal history of nicotine dependence; Z82.49 Family history of ischemic heart disease and other diseases of the circulatory system; Z68.32 Body mass index [BMI] 32.0-32.9, adult

== ENCOUNTER 2017-09-18 14:50 | Inpatient (IN) | payer MEDICARE, OTHER ==
[~2017-09-18] VITALS: Ht 160 cm; Wt 79.6 kg
[~2017-09-18 14:50] MED LIST changes: +AUGMENTIN 875-1 EACH PO; +DUONEB 2.5-0.5 M3 ML INH; +PROTONIX40 M1 PO
[2017-09-18 18:52] VITALS: BP 146/50
--- NOTE | 2017-09-18 18:53 | NUR ---
87 YEAR OLD FEMALE ADMITTED TO ROOM 328 AT 1830 WITH DEBILITY SECONDARY TO RESPIRATORY FAILURE AND PNEUMONIA. ON August SHE WAS ADMITTED TO [facility] THROUGH THE ED TO THE ICU AND WAS INTUBATED. ON August SHE WAS EXTUBATED AND TRANSFERRED TO TELEMETRY, DISCHARGED FROM THERE TODAY. PT HAS BEEN SETTLED INTO ROOM, ADMISSION EDUCATION PROVIDED TO SHE AND HER FAMILY. PT INSTRUCTED TO CALL FOR ASSISTANCE BEFORE GETTING UP AND CALL LIGHT PLACED IN HER LAP.
[2017-09-19 04:16] LABS: HEMATOCRIT 27.4 % (37.0-47.0); HEMOGLOBIN 9.1 gm/dL (12.0-15.0); MCH 29.9 pg (26.0-34.0); MCHC 33.3 g/dL (28.0-37.0); MCV 89.7 fL (80.0-100.0); MPV 7.9 fl. (7.2-11.1); RBC 3.06 mil/uL (4.20-5.00); WBC 17.5 thou/uL (4.0-11.0)
[2017-09-19 04:59] LABS: CALCIUM 8.8 mg/dL (8.5-10.1); CREATININE 0.8 mg/dL (0.6-1.3); POTASSIUM 4.4 mmol/L (3.5-5.1)
--- NOTE | 2017-09-19 05:17 | NUR ---
ASSUMED CARES AT 1915. PT ALERT AND ORIENTED BUT CAN BE FORGETFUL AT TIMES. PLEASANT. DENIES ANY PAIN OR N/V. TAKES PILLS WHOLE WITHOUT ISSUES. XANAX GIVEN TO HELP WITH SLEEP PER PT REQUEST. HAS RIGHT KNEE BRACE ON DUE TO OLD KNEE SURGERY. SAYS THAT LEAVES BRACE ON AT ALL TIMES. SHE IS A MAX ASSIST X 2 PERSON. GAIT BELT AND WALKER. PT HAS MUCH DIFFICULTY PICKING UP FEET. NEEDS A LOT CUEING FOR PROPER TRANSFER. UP TO BSC FEW TIMES. PT DID HAVE BOWEL AND BLADDER INCONTINENCE IN BED. RN DID ALL CARES. HAS STRESS INCONTINENCE. SLEPT WELL MOST OF THE NIGHT. USING CALL LIGHT APPROPRIATELY. BED ALARM ON.
[2017-09-19 08:00] VITALS: BP 137/59
--- NOTE | 2017-09-19 11:01 | NUR ---
Nutrition: Pt has been seen on other unit. H/o frailty, debility,Rt TKA, COPD, afib, HTN, Moderate PCM. Admitted to Rehab with debility. RX: wardfarin, statin, D3, B12, MVI, fish oil, lasix. Labs: BG 99-166, alb 2.2, prealb 22.7. +BM today. Wt is in usual range, 170-180#. Regular diet. Pt doesn't like oatmeal or cream of wheat. RD called kitchen to exchange these foods on her daily meals, ordered in [employer]. Mild nutrition risk at this time. Will follow weekly.
--- NOTE | 2017-09-19 15:55 | NUR ---
SW met with pt to complete initial assessment, introduce self, and SW role. Pt alert, oriented, pleasant. Pt lives at home with her who helps care for pt ADLs...cooking, cleaning. Pt has RW, wc, lift hcair. Pt current with [facility] and would prefer [facility] at [facility]. SW reviewed team conference summary with pt and plan for pt to continue rehab therapies and for team to reassess pt length of stay during team conference next Tuesday 09/26. Pt in agreement with plan. SW to follow with pt to provide updates and SW to follow to assist with safe dc planning.
--- NOTE | 2017-09-19 17:48 | NUR ---
ASSUMED CARE AT 0730 PATIENT ALERT/FORGETFUL, UP WITH MAX OF 2 WITH WALKER AND GAIT BELT. PARTICIPATED IN ALL THERAPIES TODAY, TO DINING ROOM FOR MEALS, HOURLY ROUNDING COMPLETED. BED/CHAIR ALARMS IN PLACE, CALL LIGHT IN REACH. NO COMPLAINTS OF PAIN, WEARS HINGED BRACE TO RIGHT LEG FOR SUPPORT.
[2017-09-19 20:15] VITALS: BP 138/57
--- NOTE | 2017-09-19 20:15 | NUR ---
AWAKENED FOR HS REASSESSMENT AND MED PASS. DENIES DISCOMFORT. BRIEFS DRY. RIGHT LEG BRACE IN PLACE. RIGHT LEG ELEVATED ON A PILLOW. CALL LIGHT WITHIN REACH. DAUGHTER HERE VISITING.
[2017-09-20 04:30] LABS: INR 2.2; PROTIME 21.3 Seconds (9.20-11.50)
--- NOTE | 2017-09-20 05:18 | NUR ---
RESTED QUIELTY. INCONTINENT OF URINE X ONE AND URINE AND BOWEL X ONE. YENY CARE GIVEN. TAKES MEDS WHOLE ONE AT A TIME WITH WATER. NO C/O DISCOMFORT. HOURLY ROUNDING IN PROGRESS.
[2017-09-20 07:25] VITALS: BP 132/58
[2017-09-20 09:52] VITALS: BP 72/54
[2017-09-20 10:02] VITALS: BP 144/54
[2017-09-20 10:07] VITALS: BP 137/54
--- NOTE | 2017-09-20 10:37 | NUR ---
PATIENT WAS ALERT AND PERKY THIS AM WHEN VITALS AND ASSESMENT WERE COMPLETED. TOOK MEDICATIONS INTO PATIENT ROOM RIGHT AFTER BREAKFAST AND SHE WAS A LITTLE DROWSY BUT EASILY AROUSABLE. TOOK ALL MEDS ONE AT A TIME, SWALLOWED FINE, NO ISSUES. THERAPY CAME IN TO WORK WITH PATIENT RIGHT AFTER SHE FINISHED TAKING MEDICATIONS. THERAPY CAME TO GET ME AROUND 0950 AND PATIENT WAS MORE DROWSY, PALE, SHORT OF BREATH. OBTAINED VITALS, PRESSURE WAS 72/54, PULSE 72, O2 SAT 98% ON ROOM AIR, BLOOD SUGAR WAS 190. CALLED RAPID RESPONSE, GOT PATIENT BACK TO BED AND OBTAINED ANOTHER BP FLAT, WAS 144/54, DIZZINESS WAS SUBSIDING BUT PAIENT REMAINED PALE. DR LR WAS ON THE FLOOR, HE ASSESSED THE PATIENT AND GAVE ORDERS-REFER TO RAPID RESPONSE SHEET. DR VERDUZCO ALSO CAME TO FLOOR, ASSESSED PATIENT AND GAVE ORDERS TO MOVE TO TELE. PATIENT WILL BE GOING TO [facility]SP[facility] AND THEN TO ROOM 206. REPORT CALLED TO CATERINA. ALL QUESTIONS ANSWERED. FAMILY UPDATED
[2017-09-20 10:42] LABS: HEMATOCRIT 27.9 % (37.0-47.0); HEMOGLOBIN 9.2 gm/dL (12.0-15.0); MCH 30.2 pg (26.0-34.0); MCHC 32.8 g/dL (28.0-37.0); MCV 92.2 fL (80.0-100.0); MPV 7.8 fl. (7.2-11.1); NUCLEATED RBCS 0 /100WBC; PLATELET COUNT* 274 thou/uL (150-400); RBC 3.03 mil/uL (4.20-5.00); RDW-CV 15.3 % (10.5-14.5); WBC 13.5 thou/uL (4.0-11.0)
[2017-09-20 10:54] LABS: ANION GAP 6 mmol/L (7-16); BUN 17 mg/dL (7-18); CALCIUM 8.8 mg/dL (8.5-10.1); CHLORIDE 101 mmol/L (98-107); CO2 29 mmol/L (21-32); CREATININE 0.7 mg/dL (0.6-1.3); GLUCOSE 184 mg/dL (70-99); POTASSIUM 4.1 mmol/L (3.5-5.1); SODIUM 136 mmol/L (136-145)
[2017-09-20 11:02] LABS: MAGNESIUM 2.1 mg/dL (1.8-2.4); TROPONIN-I LEVEL <0.06 ng/mL (<0.06)
[2017-09-20 11:11] LABS: ABSOLUTE LYMPHOCYTES 1.4 thou/uL (0.8-5.3); ABSOLUTE MONOCYTES 0.3 thou/uL (0.0-1.2); ABSOLUTE NEUTROPHILS 11.9 thou/uL (1.6-8.1); ANISOCYTOSIS 1+; PLATELET ESTIMATE ADEQUATE; POIKILOCYTOSIS 1+; POLYCHROMASIA 1+
--- NOTE | 2017-09-21 17:06 | EKG ---
[place] [address] ELECTROCARDIOGRAM REPORT Name: AMY TIJERINA Room: [address] DIS IN ..#: [id number] Admission: 09/18/17 Attend Phys: Ermelinda Hoyt Discharge: 09/20/17 Date of : 31 Report #: [id number] THIS REPORT FOR: //name// [facility] Test Date: 2017-09-20 Test Time: 10:13:35 Pat Name: AMY ITJERINA Department: Room: [address] Gender: F Pipe Buffer: : 1930 Requested By: Kris Paul Order Number: [id number] Reading MD: Stewart Bishop Measurements Intervals [place] Rate: 63 P: [place]: QRS: -11 QRSD: 73 T: 4 QT: 530 QTc: 543 Interpretive Statements Atrial fibrillation Borderline T wave abnormalities Prolonged QT interval Compared to ECG 09/09/2017 07:56:01 T-wave abnormality now present Prolonged QT interval now present Ventricular premature complex(es) no longer present Early repolarization no longer present Electronically Signed On 09-21-2017 17:05:44 CDT by Stewart Bishop [email or web address] <ELECTRONICALLY SIGNED> By: Stewart Bishop MD, FAC 09/21/17 1705 1013 1013 Stewart Bishop MD, FAC /EPI
--- NOTE | 2017-10-17 13:38 | H ---
[place] [address] HISTORY AND PHYSICAL Name: AMY TIJERINA Room: [address] IN M.R.#: [id number] Admission: 09/18/17 Attend Phys: Ermelinda Hoyt Discharge: 09/20/17 Date of : 31 Report #: [id number] THIS REPORT FOR: //name// CC: Mireille Max DATE OF SERVICE: 09/18/2017 HISTORY OF PRESENT ILLNESS: This is an 87-year-old female admitted to inpatient rehabilitation to facilitate safe discharge home, status post acute hospitalization beginning on 09/09/2017 for bacterial pneumonia, hypoxic respiratory failure, exacerbation of her COPD, UTI, alterations in mobility and activities of daily living. She is participating with therapies. No significant changes since the preadmission screening. Previous level of function was modified independent to independent with activities of daily living. Current level of function is moderate to maximum assistance of 1-2 depending on therapy, activity and time of day. She also has mild to moderate impairment of comprehension, expression, social interaction, problem solving and memory. Estimated length of stay is 16-18 days with discharge disposition to the home setting, where she does have a spouse that can provide supervision and assistance. She also has multiple medical comorbidities, requiring acute medical daily care. 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 ALLERGIES: IODINE. MEDICATIONS: Reviewed and reconciled by myself and are available in the MAR. FAMILY HISTORY: Unchanged from consult. SOCIAL HISTORY: Unchanged from consult. REVIEW OF SYSTEMS: A 14-point review of systems is done today, is negative except as mentioned in HPI. Specifically no fever, chest pain, shortness of breath, abdominal pain or distention, change in bowel or change in bladder. PHYSICAL EXAMINATION: GENERAL: Alert, oriented, in no apparent distress. VITAL SIGNS: Reviewed and are stable. HEENT: Atraumatic, normocephalic. Pupils equal, round, [place] [address] HISTORY AND PHYSICAL Name: AMY TIJERINA Room: [address] IN [facility].#: [id number] Admission: 09/18/17 Attend Phys: Ermelinda Hoyt Discharge: 09/20/17 Date of : 31 Report #: [id number] ABDOMEN: Soft, nontender, nondistended. NEUROLOGIC: Cranial nerves 2-12 are grossly intact with no focal neuro deficits, 5/5 strength in the bilateral upper and lower extremities. SKIN: Warm and dry. No rashes or lesions noted. ASSESSMENT: 1. Significant debility status post bacterial pneumonia and hypoxic respiratory failure. 2. Multiple medical comorbidities, requiring acute daily care. 3. Alterations in activities of daily living and mobility, requiring physical and occupational therapy. 4. Alterations in comprehension, memory, interaction, expression, and problem solving, requiring ongoing speech language pathology. PLAN: 1. Admission to inpatient rehabilitation. 2. PT, OT, speech, language, case management, nursing and HIMS to make evaluations and recommendations. 3. Plan of care is pending and we will team her weekly. Goal is modified independent prior to the discharge to the home setting. <ELECTRONICALLY SIGNED> By: Mireille Espinosa DO 10/17/17 1338 1330 [id number] Espinosa DO /nt
--- NOTE | 2017-10-17 13:38 | PLAN ---
[facility] [address] [place] [address] REHAB UNIT PLAN OF CARE Name: AMY TIJERINA Room: [address] IN M.R.#: [id number] Admission: 09/18/17 Attend Phys: Ermelinda Hoyt Discharge: 09/20/17 Date of : 31 Report #: [id number] THIS REPORT FOR: //name// CC: Mireille Max This is an 87-year-old female admitted to inpatient rehabilitation to facilitate safe discharge home, status post acute hospitalization for bacterial pneumonia, acute respiratory failure, significant debility. Medical prognosis is good. Rehabilitation prognosis is good. Previous level of function was modified independent to independent with activities of daily living. Current level of function is moderate to maximum assistance of 1-2 depending on therapy, activity and time of day. She also has alterations in memory, problem solving, interaction, expression and speech language pathology is working with her on that. Estimated length of stay is 16-18 days with discharge disposition to the home setting. Physical Therapy will see the patient 60-90 minutes per day, 5 days per week, working on upper and lower body strength, balance, coordination, navigation. Occupational Therapy will work with the patient 60-90 minutes per day, 5 days per week, working on upper and lower body strength, balance, coordination, navigation, bathing, dressing, and toileting. Speech and Language Pathology will work with the patient 30-90 minutes per day, 5 days per week, working on memory, problem solving, interaction, expression and strategies. This is an overall plan of care, may change from time to time. We will team weekly and make changes to plan of care as needed. <ELECTRONICALLY SIGNED> By: Mireille Espinosa DO 10/17/17 1338 1333 1705Mireille Espinosa DO /nt
--- NOTE | 2017-11-21 11:22 | D ---
[facility] [address] [place] [address] DISCHARGE SUMMARY Name: AMY TIJERINA Room: [address] IN ..#: [id number] Admission: 09/18/17 Attend Phys: Ermelinda Hoyt Discharge: 09/20/17 Date of : 31 Report #: [id number] THIS REPORT FOR: //name// CC: Mireille King DATE OF SERVICE: 09/20/2017 DISCHARGE DIAGNOSES: Encephalopathy with severe esophagitis and significant debility and alterations in mobility. DISCHARGE DISPOSITION: To skilled level of care for continued subacute rehabilitation given her age and lack of supervision, unsuccessful to get her to the home setting. She will continue with physical and occupational therapy as well as nursing and speech therapy while there. Notifications for physician were not given as she is being transferred to a facility, she will maintain the same diet. She does require 24 x 7 care. She does not need to maintain fall precautions. DISCHARGE PHYSICAL EXAMINATION: GENERAL: Alert, oriented, in no apparent distress. VITAL SIGNS: Reviewed and are stable. HEENT: Atraumatic, normocephalic. Pupils equal, round, reactive. ABDOMEN: Soft, nontender, nondistended. NEUROLOGIC: Cranial nerves 2-12 are grossly intact. No focal neuro deficits. <ELECTRONICALLY SIGNED> By: Mireille Espinosa DO 11/21/17 1122 1549 1724DO elba Foley
== END 2017-09-20 10:50 | DRG 947 ==
LOC: M.REH 14:50 → M.2W 09-20 11:12 → M.REH 09-20 11:12
PROVIDERS: Internal Medicine; ADMIT Physical Medicine & Rehabilitation
DX: R53.81 Other malaise (principal); J96.01 Acute respiratory failure with hypoxia; J69.0 Pneumonitis due to inhalation of food and vomit; J15.6 Pneumonia due to other Gram-negative bacteria; J44.1 Chronic obstructive pulmonary disease with (acute) exacerbation; N39.0 Urinary tract infection, site not specified; J44.0 Chronic obstructive pulmonary disease with (acute) lower respiratory infection; I48.91 Unspecified atrial fibrillation; K21.9 Gastro-esophageal reflux disease without esophagitis; D64.9 Anemia, unspecified; I10 Essential (primary) hypertension; E11.9 Type 2 diabetes mellitus without complications; H66.90 Otitis media, unspecified, unspecified ear; I27.20 Pulmonary hypertension, unspecified; I35.0 Nonrheumatic aortic (valve) stenosis; Z96.651 Presence of right artificial knee joint; Z96.643 Presence of artificial hip joint, bilateral; Z96.1 Presence of intraocular lens; Z90.710 Acquired absence of both cervix and uterus; Z90.49 Acquired absence of other specified parts of digestive tract; Z95.0 Presence of cardiac pacemaker; Z98.42 Cataract extraction status, left eye; Z98.41 Cataract extraction status, right eye; Z91.041 Radiographic dye allergy status; Z87.891 Personal history of nicotine dependence; Z85.118 Personal history of other malignant neoplasm of bronchus and lung; Z82.49 Family history of ischemic heart disease and other diseases of the circulatory system

== ENCOUNTER 2017-09-20 12:46 | Inpatient (IN) | payer MEDICARE, OTHER ==
[~2017-09-20] VITALS: Ht 160 cm; Wt 75.7 kg
--- NOTE | ~2017-09-20 | PROC ---
[address] [address] PROCEDURE REPORT Name: AMY TIJERINA Room: [address] IN M.R.#: [id number] Admission: 09/21/17 Attend Phys: Tawny Mendoza Discharge: 09/24/17 Date of : 31 Report #: [id number] THIS REPORT FOR: //name// For GI report, please see the Provation report in Perceptive 7 content. By: 0701Medical Records Staff DAVID /MAKSIM
[2017-09-20 11:30] VITALS: BP 133/64
[2017-09-20 14:15] VITALS: BP 155/65
[2017-09-20 16:00] VITALS: BP 122/47
[2017-09-20 20:20] VITALS: BP 118/56
[2017-09-21] VITALS (7 sets, daily range): BP systolic 101–149; BP diastolic 36–63
[2017-09-21 04:31] LABS: HEMATOCRIT 24.6 % (37.0-47.0); HEMOGLOBIN 8.2 gm/dL (12.0-15.0); MCH 30.8 pg (26.0-34.0); MCHC 33.4 g/dL (28.0-37.0); MCV 92.3 fL (80.0-100.0); MPV 7.4 fl. (7.2-11.1); RBC 2.66 mil/uL (4.20-5.00)
[2017-09-21 04:48] LABS: INR 2.3; PROTIME 22.1 Seconds (9.20-11.50)
[2017-09-21 05:10] LABS: ALBUMIN 2.2 g/dL (3.4-5.0); CALCIUM 8.6 mg/dL (8.5-10.1); CREATININE 0.6 mg/dL (0.6-1.3); POTASSIUM 3.8 mmol/L (3.5-5.1); TOTAL BILIRUBIN 0.6 mg/dL (<0.1-1.0); TOTAL PROTEIN 4.6 g/dL (6.4-8.2)
[2017-09-21 07:18] LABS: URINE BILIRUBIN NEGATIVE (Negative); URINE BLOOD NEGATIVE (Negative); URINE CLARITY CLEAR; URINE COLOR STRAW; URINE GLUCOSE-RANDOM NEGATIVE (Negative); URINE KETONES NEGATIVE (Negative); URINE LEUKOCYTES-REFLEX NEGATIVE (Negative); URINE NITRITE-REFLEX NEGATIVE (Negative); URINE PROTEIN NEGATIVE (Negative); URINE SPECIFIC GRAVITY 1.015 (1.005-1.030); URINE UROBILINOGEN 0.2 E.U./dl (0.2-1.0)
--- NOTE | 2017-09-21 16:04 | 2DMMODE ---
[place] [address] 2 D/M-MODE ECHOCARDIOGRAM Name: AMY TIJERINA Neri Room: [address] IN [facility]#: [id number] Admission: 09/20/17 Attend Phys: Yoseph Ceron Discharge: Date of : 32 Date of Service: 09/21/17 1604 Report #: [id number] THIS REPORT FOR: //name// APPROVED REPORT Study performed: 09/21/2017 11:44:12 EXAM: Limited 2D, Doppler, and color-flow Echocardiogram Patient Location: In-Patient Room #: [facility] Status: routine BSA: 1.80 HR: 99 bpm BP: 124/61 mmHg Rhythm: Atrial Fibrillation Other Information Study Quality: Good Indications Atrial Fibrillation Assess for acute change... patient had echo 09/05/17 Left Ventricle The left ventricle is normal size. Regional wall motion is normal. There is normal left ventricular wall thickness. The left ventricular systolic function is normal. The left ventricular ejection fraction is within the normal range. LVEF is 65-70%. Grade I - abnormal relaxation pattern. Right Ventricle Right ventricle is dilated. Device lead is present in the right ventricle. Atria Left atrium is moderately dilated. Right atrium is severely dilated. Aortic Valve Moderate aortic valve sclerosis. No aortic regurgitation is present. Mild aortic stenosis. Mitral Valve The mitral valve is normal in structure. Mild to [place] [address] 2 D/M-MODE ECHOCARDIOGRAM Name: AMY TIJERINA Room: [address] IN .R.#: [id number] Admission: 09/20/17 Attend Phys: Yoseph Ceron Discharge: Date of : 31 Date of Service: 09/21/17 1604 Report #: [id number] Tricuspid Valve The tricuspid valve is normal in structure. Mild tricuspid regurgitation. The RVSP is 35-40 mmHg. Pulmonic Valve The pulmonary valve is normal in structure. Great Vessels The aortic root is normal in size. IVC is normal in size and collapses >50% with inspiration. Pericardium There is no pericardial effusion. <Conclusion> LVEF is 65-70%. Regional wall motion is normal. Grade I - abnormal relaxation pattern. Right ventricle is dilated. Left atrium is moderately dilated. Right atrium is severely dilation No aortic regurgitation is present.Mild aortic stenosis as per previous echo, limited evaluation this study. Mild to moderate mitral regurgitation. Device lead is present in the right ventricle. <ELECTRONICALLY SIGNED> By: Stewart Bishop MD, FACC 09/21/17 1604 1604 1604 Stewart Bishop MD, FACC /INF
[2017-09-22 04:23] VITALS: BP 152/58
[2017-09-22 04:51] LABS: ABSOLUTE EOSINOPHILS 0.1 thou/uL (0.0-0.7); ABSOLUTE LYMPHOCYTES 0.8 thou/uL (0.8-5.3); ABSOLUTE MONOCYTES 0.5 thou/uL (0.0-1.2); ABSOLUTE NEUTROPHILS 6.2 thou/uL (1.6-8.1); BASOPHILS 0.6 %; EOSINOPHILS 1.8 %; HEMATOCRIT 23.2 % (37.0-47.0); HEMOGLOBIN 7.8 gm/dL (12.0-15.0); LYMPHOCYTES 10.2 %; MCH 30.6 pg (26.0-34.0); MCHC 33.6 g/dL (28.0-37.0); MCV 90.9 fL (80.0-100.0); MPV 7.7 fl. (7.2-11.1); NUCLEATED RBCS 0 /100WBC; PLATELET COUNT* 236 thou/uL (150-400); POLYS 80.4 %; RBC 2.55 mil/uL (4.20-5.00); RDW-CV 14.9 % (10.5-14.5); WBC 7.7 thou/uL (4.0-11.0)
[2017-09-22 05:03] LABS: INR 1.5; PROTIME 14.7 Seconds (9.20-11.50)
[2017-09-22 05:08] LABS: CREATININE 0.6 mg/dL (0.6-1.3); POTASSIUM 3.9 mmol/L (3.5-5.1); TOTAL BILIRUBIN 0.6 mg/dL (<0.1-1.0); TOTAL PROTEIN 4.9 g/dL (6.4-8.2)
[2017-09-22 08:00] VITALS: BP 133/65
[2017-09-22 13:16] VITALS: BP 138/62
[2017-09-22 17:26] VITALS: BP 130/69
[2017-09-22 20:00] VITALS: BP 121/48
[2017-09-23] VITALS (7 sets, daily range): BP systolic 107–177; BP diastolic 43–60
[2017-09-23 05:08] LABS: ABSOLUTE BASOPHILS 0.1 thou/uL (0.0-0.2); ABSOLUTE EOSINOPHILS 0.1 thou/uL (0.0-0.7); ABSOLUTE MONOCYTES 0.5 thou/uL (0.0-1.2); ABSOLUTE NEUTROPHILS 3.8 thou/uL (1.6-8.1); EOSINOPHILS 2.4 %; HEMATOCRIT 24.5 % (37.0-47.0); HEMOGLOBIN 8.3 gm/dL (12.0-15.0); MCH 30.6 pg (26.0-34.0); MCHC 33.7 g/dL (28.0-37.0); MCV 90.8 fL (80.0-100.0); MONOCYTES 8.6 %; MPV 7.7 fl. (7.2-11.1); NUCLEATED RBCS 0 /100WBC; PLATELET COUNT* 240 thou/uL (150-400); RDW-CV 15.4 % (10.5-14.5); WBC 5.5 thou/uL (4.0-11.0)
[2017-09-23 05:14] LABS: INR 1.5; PROTIME 14.9 Seconds (9.20-11.50)
[2017-09-23 05:19] LABS: CALCIUM 8.6 mg/dL (8.5-10.1); CREATININE 0.6 mg/dL (0.6-1.3); TOTAL BILIRUBIN 0.6 mg/dL (<0.1-1.0); TOTAL PROTEIN 5.1 g/dL (6.4-8.2)
[2017-09-24 00:23] VITALS: BP 133/62
[2017-09-24 04:15] VITALS: BP 119/48
[2017-09-24 05:57] LABS: INR 1.5; PROTIME 14.5 Seconds (9.20-11.50)
[2017-09-24 08:04] VITALS: BP 104/44
--- NOTE | 2017-09-24 08:22 | CON ---
[address] [address] CONSULTATION Name: AMY TIJERINA Room: [address] IN .R.#: [id number] Admission: 09/20/17 Attend Phys: Tawny Mendoza Discharge: Date of : 31 Report #: [id number] THIS REPORT FOR: //name// CC: Poppy Ceron DATE OF SERVICE: 09/22/2017 REQUESTING PHYSICIAN: Kris Paul MD. INDICATION FOR CONSULT: Anemia and GI bleed. HISTORY OF PRESENT ILLNESS: This is an 87-year-old female who was initially at rehab. The patient developed respiratory failure due to pneumonia. She was intubated and now extubated. We were consulted mainly because the patient is anemic. Her hemoglobin was 7.7 and after transfusion, went up to 9.2 and currently is 8.3. The patient cannot give me any history in regards to her endoscopic evaluations in the past. She believes that she had a colonoscopy at some time, but does not recall when. She also does not believe if she ever had upper scope. She currently denies any dysphagia, dyspepsia, abdominal pain, hematochezia, melena, constipation and diarrhea. PAST MEDICAL HISTORY: Significant for history of hypertension, gastroesophageal reflux disease, AFib requiring anticoagulation with warfarin, bilateral hip replacement, history of pacemaker placement, borderline diabetes, hysterectomy, urinary tract infections. ALLERGIES: SIGNIFICANT TO IODINE. MEDICATIONS: Please refer to [facility]. SOCIAL HISTORY: The patient reports that she lives at home with her . She used to smoke a pack of cigarette per day, but has quit more than a year ago. She denies alcohol use. FAMILY HISTORY: Noncontributory. ASSESSMENT AND PLAN: This is an 87-year-old female who was intubated due to respiratory failure and pneumonia and currently extubated, but found to be anemic. She also has chronic obstructive pulmonary disease and atrial fibrillation and is on warfarin. We [place] proceed [place] [address] CONSULTATION Name: AMY TIJERINA Room: [address]#: [id number] Admission: 09/20/17 Attend Phys: Tawny Mendoza Discharge: Date of : 31 Report #: [id number] further evaluate her anemia. I will obtain a B12, folic acid, and iron studies. We will make further recommendation after the upper scope is complete. <ELECTRONICALLY SIGNED> By: Andrae Martinez MD 09/24/17 0822 0757 1041Andrae Martinez MD /nt
[2017-09-24 12:08] VITALS: BP 116/61
[2017-09-24 14:10] VITALS: BP 116/61
[2017-09-24 15:38] VITALS: BP 113/56
== END 2017-09-24 16:17 | DRG 314 ==
LOC: M.2W 12:46
PROVIDERS: Internal Medicine; Internal Medicine Gastroenterology; Nurse Practitioner Family; ADMIT Internal Medicine
PROC: 0DJ08ZZ Inspection of Upper Intestinal Tract, Via Natural or Artificial Opening Endoscopic (ICD-10-PCS; principal; 2017-09-23)
DX: I95.89 Other hypotension (principal); G93.41 Metabolic encephalopathy; E86.0 Dehydration; R55 Syncope and collapse; E11.9 Type 2 diabetes mellitus without complications; I10 Essential (primary) hypertension; I48.2 Chronic atrial fibrillation; K21.0 Gastro-esophageal reflux disease with esophagitis; K44.9 Diaphragmatic hernia without obstruction or gangrene; J44.9 Chronic obstructive pulmonary disease, unspecified; D64.9 Anemia, unspecified; Z96.651 Presence of right artificial knee joint; Z96.1 Presence of intraocular lens; Z96.643 Presence of artificial hip joint, bilateral; Z79.01 Long term (current) use of anticoagulants; Z91.041 Radiographic dye allergy status; Z95.0 Presence of cardiac pacemaker; Z90.710 Acquired absence of both cervix and uterus; Z79.899 Other long term (current) drug therapy; Z98.890 Other specified postprocedural states; Z98.42 Cataract extraction status, left eye; Z98.41 Cataract extraction status, right eye; Z87.891 Personal history of nicotine dependence; Z87.01 Personal history of pneumonia (recurrent); Z79.2 Long term (current) use of antibiotics; Z82.49 Family history of ischemic heart disease and other diseases of the circulatory system

== ENCOUNTER 2017-09-24 13:36 | Inpatient (IN) | payer MEDICARE, OTHER ==
[~2017-09-24] VITALS: Ht 160 cm; Wt 78.0 kg
[2017-09-24 17:03] VITALS: BP 153/59
[2017-09-24 20:00] VITALS: BP 119/55
[2017-09-25 04:17] LABS: HEMATOCRIT 24.1 % (37.0-47.0); MCH 30.5 pg (26.0-34.0); MCHC 33.4 g/dL (28.0-37.0); MCV 91.5 fL (80.0-100.0); MPV 7.4 fl. (7.2-11.1); RBC 2.63 mil/uL (4.20-5.00); RDW-CV 16.2 % (10.5-14.5); WBC 4.3 thou/uL (4.0-11.0)
[2017-09-25 04:36] LABS: CALCIUM 8.7 mg/dL (8.5-10.1); CREATININE 0.6 mg/dL (0.6-1.3); POTASSIUM 3.3 mmol/L (3.5-5.1)
[2017-09-25 08:00] VITALS: BP 120/51
[2017-09-25 19:55] VITALS: BP 119/48
[2017-09-26 11:19] VITALS: BP 108/54
[2017-09-26 20:45] VITALS: BP 123/62
[2017-09-27 05:02] LABS: INR 1.8; PROTIME 17.4 Seconds (9.20-11.50)
[2017-09-27 07:35] VITALS: BP 130/71
[2017-09-27 20:09] VITALS: BP 114/49
[2017-09-28 02:07] LABS: GLYCOHEMOGLOBIN (HGB A1C) 6.4 % (4.8-5.6)
[2017-09-28 08:49] VITALS: BP 105/44
[2017-09-28 20:17] VITALS: BP 112/52
[2017-09-29 07:50] VITALS: BP 103/43; BP 104/56
[2017-09-29 08:50] VITALS: BP 104/56
[2017-09-29 10:45] VITALS: BP 133/60
[2017-09-29 11:48] LABS: HEMATOCRIT 27.8 % (37.0-47.0); HEMOGLOBIN 9.3 gm/dL (12.0-15.0); MCH 31.6 pg (26.0-34.0); MCHC 33.6 g/dL (28.0-37.0); MPV 7.1 fl. (7.2-11.1); RBC 2.96 mil/uL (4.20-5.00); RDW-CV 17.9 % (10.5-14.5)
[2017-09-29 11:53] LABS: CALCIUM 9.1 mg/dL (8.5-10.1); CREATININE 0.8 mg/dL (0.6-1.3); POTASSIUM 4.6 mmol/L (3.5-5.1)
[2017-09-29 20:05] VITALS: BP 125/63
[2017-09-30 08:04] VITALS: BP 106/50
[2017-09-30 20:27] VITALS: BP 115/58
--- NOTE | 2017-09-30 22:24 | CON ---
[facility] [address] [place] [address] CONSULTATION Name: AMY TIJERINA Room: [address] ADM IN M.R.#: [id number] Admission: 09/24/17 Attend Phys: Mireille Espinosa DO Discharge: Date of : 31 Report #: [id number] THIS REPORT FOR: //name// CC: [facility] physician/PCP Mireille Max DICTATED BY: Hayden Mcclure DO DATE OF SERVICE: 09/28/2017 REASON FOR CONSULTATION: Painful right knee brace with history of right total knee arthroplasty. HISTORY OF PRESENT ILLNESS: The patient is a pleasant 87-year-old female with some signs of memory loss. She is a little confused upon questioning today. It appears that she was admitted with encephalopathy on 09/20/2017. She has since been transferred to the rehabilitation unit where she has complained of some pain with her right knee brace. Upon questioning and review of the medical records, she was found to have a right total knee arthroplasty in 2014. She states that she has had pain and instability intermittently since she was placed in a brace and has been content in her brace and has no desire to have any further surgery regarding revision total knee arthroplasty; however, would like to get a better fitting brace if it does not cause pain. Otherwise, denies any acute changes. No fevers or chills. No other acute musculoskeletal complaints. PAST MEDICAL HISTORY: Atrial fibrillation, GERD, hypertension, recent UTI, COPD, anemia, diabetes, pneumonia, pulmonary edema, GI bleed, respiratory failure, debility, chronic ear infections, hematuria, pulmonary hypertension, cardiomegaly. PAST SURGICAL HISTORY: Right total knee arthroplasty. MEDICATIONS: See JUN. ALLERGIES: See inpatient allergy list. REVIEW OF SYSTEMS: A 12-point review of systems otherwise negative except for the above-mentioned HPI. PHYSICAL EXAMINATION: GENERAL: Alert, oriented, no acute distress. HEENT: Normocephalic, atraumatic. Eyes: Extraocular motion intact. Ears are grossly normal. Mouth: Mucosa moist. NECK: Supple. CARDIOVASCULAR: [place] [address] CONSULTATION Name: BREEZYAMY Room: [address] IN ..#: [id number] Admission: 09/24/17 Attend Phys: Mireille Espinosa DO Discharge: Date of : 31 Report #: [id number] ABDOMEN: Soft. MUSCULOSKELETAL: Examination of the right knee demonstrates no warmth, erythema or drainage. No skin lesions present. No real effusion is present. Range of motion is -5 to 130 degrees. The knee has severe laxity medially with valgus stress secondary to MCL insufficiency. IMPRESSION: 1. 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 3. Painful right knee brace. PLAN: At this time, we discussed the ligamentous instability about her right knee. She has no desire to have any sort of revision surgery to correct this. She has brace; however, she would like a better fitting brace. [facility] has already been consulted to come fit her with a new brace. She will continue to use one she has in the meantime. I will order x-rays to evaluate the implant itself. We will follow up on x-rays; however, there is no acute orthopedic intervention at this time. She may follow up at any point in time if she does decide she wants to discuss surgical options for her right knee instability. <ELECTRONICALLY SIGNED> By: Ketan Medrano DO 09/30/17 2224 1647 [id number] Nabil Medrano DO /nt
[2017-10-01 04:01] LABS: HEMATOCRIT 25.5 % (37.0-47.0); HEMOGLOBIN 8.4 gm/dL (12.0-15.0); MCH 31.2 pg (26.0-34.0); MCHC 33.1 g/dL (28.0-37.0); MCV 94.3 fL (80.0-100.0); MPV 7.2 fl. (7.2-11.1); RBC 2.71 mil/uL (4.20-5.00); RDW-CV 18.2 % (10.5-14.5); WBC 3.6 thou/uL (4.0-11.0)
[2017-10-01 04:20] LABS: CALCIUM 8.5 mg/dL (8.5-10.1); CREATININE 0.8 mg/dL (0.6-1.3); MAGNESIUM 1.9 mg/dL (1.8-2.4)
[2017-10-01 04:21] LABS: INR 2.4; PROTIME 23.2 Seconds (9.20-11.50)
[2017-10-01 08:00] VITALS: BP 128/53
[2017-10-01 19:56] VITALS: BP 129/49
[2017-10-02 08:00] VITALS: BP 110/53
[2017-10-02 19:30] VITALS: BP 114/63
[2017-10-03 08:02] VITALS: BP 81/40
[2017-10-03 20:00] VITALS: BP 124/50
[2017-10-04 07:45] VITALS: BP 110/48
[2017-10-04 20:10] VITALS: BP 132/59
[2017-10-05 08:12] VITALS: BP 118/54
[2017-10-05 09:05] VITALS: BP 118/54
[2017-10-05 20:15] VITALS: BP 116/56
[2017-10-06 08:03] VITALS: BP 108/52
[2017-10-06 16:31] LABS: INR 2.9; PROTIME 27.5 Seconds (9.20-11.50)
[2017-10-06 20:45] VITALS: BP 115/64
[2017-10-07 04:27] LABS: HEMATOCRIT 24.6 % (37.0-47.0); HEMOGLOBIN 8.4 gm/dL (12.0-15.0); MCH 32.1 pg (26.0-34.0); MCHC 34.3 g/dL (28.0-37.0); MCV 93.6 fL (80.0-100.0); MPV 7.5 fl. (7.2-11.1); RBC 2.63 mil/uL (4.20-5.00); WBC 3.7 thou/uL (4.0-11.0)
[2017-10-07 04:35] LABS: INR 2.7
[2017-10-07 04:43] LABS: CALCIUM 8.7 mg/dL (8.5-10.1); CREATININE 0.7 mg/dL (0.6-1.3); MAGNESIUM 1.8 mg/dL (1.8-2.4); POTASSIUM 3.3 mmol/L (3.5-5.1)
[2017-10-07 07:55] VITALS: BP 111/58
[2017-10-07 19:30] VITALS: BP 106/60
[2017-10-08 04:47] LABS: HEMATOCRIT 27.6 % (37.0-47.0); MCHC 32.5 g/dL (28.0-37.0); MCV 95.3 fL (80.0-100.0); MPV 7.8 fl. (7.2-11.1); RBC 2.9 mil/uL (4.20-5.00); WBC 5.2 thou/uL (4.0-11.0)
[2017-10-08 05:05] LABS: INR 2.2; PROTIME 21.3 Seconds (9.20-11.50)
[2017-10-08 05:08] LABS: CALCIUM 8.6 mg/dL (8.5-10.1); MAGNESIUM 1.8 mg/dL (1.8-2.4); POTASSIUM 4.6 mmol/L (3.5-5.1)
[2017-10-08 07:37] VITALS: BP 109/50
[2017-10-08 20:05] VITALS: BP 123/56
[2017-10-09 04:34] LABS: INR 2.2; PROTIME 21.3 Seconds (9.20-11.50)
[2017-10-09 07:53] VITALS: BP 111/54
[2017-10-09 19:15] VITALS: BP 116/55
[2017-10-10 07:37] VITALS: BP 88/49
[2017-10-10 19:30] VITALS: BP 109/53
[2017-10-11 04:30] LABS: INR 1.9; PROTIME 17.9 Seconds (9.20-11.50)
[2017-10-11 07:30] VITALS: BP 113/58
[2017-10-11 20:00] VITALS: BP 117/53
[2017-10-12] MEDS ORDERED: THERAGRAN-M PR1 EAC1 PO ×2 (03:15→03:19)
[2017-10-12 04:38] VITALS: BP 117/53; BP 121/62
[2017-10-12 08:00] VITALS: BP 121/62
[2017-10-12 10:06] VITALS: BP 121/62
[2017-10-12 13:04] VITALS: BP 121/62
--- NOTE | 2017-10-17 13:38 | PLAN ---
[facility] [address] [place] [address] REHAB UNIT PLAN OF CARE Name: AMY TIJERINA Room: [address] IN M.R.#: [id number] Admission: 09/24/17 Attend Phys: Mireille Espinosa DO Discharge: 10/12/17 Date of : 31 Report #: [id number] THIS REPORT FOR: //name// CC: [facility] physician/PCP Mireille Max OVERALL PLAN OF CARE This is an 87-year-old female known from previous consultation, admitted to inpatient rehabilitation to facilitate safe discharge home, status post acute hospitalization where she was diagnosed with encephalopathy on 09/20/2017. She does have significant alterations in her mobility, activities of daily living and tbon-am-shjgnygr impairment of her comprehension, expression and social interaction. Previous level of function was modified independent to independent with activities of daily living. Current level of function is minimum to maximum assistance of 1-2 depending on therapy, activity and time of day. Estimated length of stay is 14-16 days with discharge disposition to the home setting where she does have supportive family that can provide supervision and assistance if needed. MEDICAL PROGNOSIS: Good. REHABILITATION PROGNOSIS: Good. Physical therapy will see the patient 60-90 minutes per day, 5 days per week, working on upper and lower body strength, balance, coordination, navigation. Occupational therapy will work with the patient 60-90 minutes per day, 5 days per week, working on upper and lower body strength, balance, coordination, navigation, bathing, dressing, and toileting. Speech language pathology will work with the patient 30-90 minutes per day, 5 days per week, working on comprehension, expression, social interaction, and dysphagia. This is an overall plan of care, may change from time to time. We will team weekly and make changes to the plan of care as needed. <ELECTRONICALLY SIGNED> By: Mireille Espinosa DO 10/17/17 1338 1434 [id number] Espinosa DO /nt
--- NOTE | 2017-10-17 13:38 | H ---
[facility] [address] [place] [address] HISTORY AND PHYSICAL Name: AMY TIJERINA Room: [address] IN M.R.#: [id number] Admission: 09/24/17 Attend Phys: Mireille Espinosa DO Discharge: 10/12/17 Date of : 31 Report #: [id number] THIS REPORT FOR: //name// CC: [facility] physician/PCP Mireille Max DATE OF SERVICE: 09/24/2017 HISTORY OF PRESENT ILLNESS: This is an 87-year-old female admitted to inpatient rehabilitation to facilitate safe discharge to the home setting after a recent acute admission where she was diagnosed with encephalopathy on 09/20/2017. She did undergo EGD on 09/23/2017, found to have reflux esophagitis and significant debility. She did have improvement with her physical and occupational therapy and her speech and language pathology. She will be low endurance. No significant changes since the preadmission screening. Previous level of function was modified independent to independent with activities of daily living. Currently, she is minimum to maximum assistance of 1-2 with physical and occupational therapy. She also has uhws-ni-knqwqimu impairment of comprehension, expression, social interaction, and problem solving. Estimated length of stay is 14-16 days with discharge disposition to the home setting where she does have a spouse in the home. They can provide supervision and assistance. She does have multiple medical comorbidities requiring daily medical care. PAST MEDICAL HISTORY: Atrial fibrillation, GERD, hypertension, recent urinary tract infection, COPD, anemia, diabetes, pneumonia, pulmonary edema, GI bleed, respiratory failure, debility, chronic ear infections, hematuria, moderate pulmonary hypertension, cardiomegaly. PAST SURGICAL HISTORY: Unchanged from consult. MEDICATIONS: Reviewed and reconciled by myself and are available in the MAR. REVIEW OF SYSTEMS: A 14-point review of systems is done today, is negative except as mentioned in HPI, specifically no fever, chest pain, shortness of breath, abdominal pain or distention. No change in bowel or bladder. PHYSICAL EXAMINATION: GENERAL: Alert, oriented, in no apparent distress. VITAL SIGNS: Reviewed and are stable. HEENT: Atraumatic, normocephalic. Pupils equal, round, reactive. ABDOMEN: Soft, nontender, nondistended. NEUROLOGIC: Cranial nerves 2-12 are grossly intact with no focal neuro deficits, 5/5 strength in bilateral upper and [place] [address] HISTORY AND PHYSICAL Name: AMY TIJERINA Room: [address] IN [facility]#: [id number] Admission: 09/24/17 Attend Phys: Mireille Espinosa DO Discharge: 10/12/17 Date of : 31 Report #: [id number] ASSESSMENT: 1. Significant debility with alterations in mobility and activities of daily living. 2. Recent encephalopathy. 3. Recent urinary tract infection and pneumonia. PLAN: 1. Admission to inpatient rehabilitation. 2. PT, OT, speech, language, case management, nursing and HIMS to make evaluations and recommendations. 3. We will team weekly and make changes to plan of care as needed. 4. Plan of care is pending. <ELECTRONICALLY SIGNED> By: Mireille Espinosa DO 10/17/17 1338 1432 1445Mireille Espinosa DO /nt
--- NOTE | 2017-11-21 11:22 | D ---
[facility] [address] [place] [address] DISCHARGE SUMMARY Name: AMY TIJERINA Neri Room: [address] IN .R.#: [id number] Admission: 09/24/17 Attend Phys: Mireille Espinosa DO Discharge: 10/12/17 Date of : 31 Report #: [id number] THIS REPORT FOR: //name// CC: [facility] physician/PCP Mireille Max DATE OF SERVICE: 10/12/2017 This was her second stay. DISCHARGE DIAGNOSES: Severe alterations in mobilities and activities of daily living with a recent encephalopathy and urinary tract infection as well as an upper respiratory pneumonia. DISCHARGE DISPOSITION: To skilled level of care for continued subacute care given her need for 24/7 supervision and her level of debility. She will need ongoing physical and occupational therapy. MEDICATIONS: Reviewed and reconciled by myself and are available in the MAR. DIET: She will maintain the same diet. DISCHARGE PHYSICAL EXAMINATION: GENERAL: Alert, oriented, in no apparent distress. VITAL SIGNS: Reviewed and are stable. HEENT: Atraumatic, normocephalic. Pupils equal, round, reactive. ABDOMEN: Soft, nontender, nondistended. NEUROLOGIC: Cranial nerves 2-12 are grossly intact with no focal neuro deficits. <ELECTRONICALLY SIGNED> By: Mireille Espinosa DO 11/21/17 1122 1552 1727Kelbharti Espinosa DO /brennan
== END 2017-10-12 13:04 | disposition home health service (06) | DRG 72 ==
LOC: M.REH 13:36
PROVIDERS: Family Medicine; Internal Medicine; ADMIT Physical Medicine & Rehabilitation
DX: G93.41 Metabolic encephalopathy (principal); K21.9 Gastro-esophageal reflux disease without esophagitis; R53.81 Other malaise; I48.91 Unspecified atrial fibrillation; I10 Essential (primary) hypertension; J44.9 Chronic obstructive pulmonary disease, unspecified; D64.9 Anemia, unspecified; I95.9 Hypotension, unspecified; E86.0 Dehydration; Z96.651 Presence of right artificial knee joint; I27.20 Pulmonary hypertension, unspecified; M23.51 Chronic instability of knee, right knee; R55 Syncope and collapse; E11.65 Type 2 diabetes mellitus with hyperglycemia; I08.2 Rheumatic disorders of both aortic and tricuspid valves; R53.83 Other fatigue; G31.84 Mild cognitive impairment of uncertain or unknown etiology; E87.6 Hypokalemia; E86.9 Volume depletion, unspecified; Z87.440 Personal history of urinary (tract) infections; Z87.01 Personal history of pneumonia (recurrent); Z79.899 Other long term (current) drug therapy; Z79.01 Long term (current) use of anticoagulants

== ENCOUNTER 2017-10-24 13:45 | Inpatient (IN) | payer MEDICARE, OTHER ==
[~2017-10-24] VITALS: Ht 160 cm; Wt 75.7 kg
[~2017-10-24 13:45] MED LIST changes: +THERAGRAN-M PR1 EAC1 PO
[2017-10-24 13:49] VITALS: BP 138/48
[2017-10-24] MEDS ORDERED: KLOR-CON 1010 MEQ PO (13:57)
[2017-10-24] MEDS ORDERED: IRON325 PO (13:58)
[2017-10-24] MEDS ORDERED: DILTIAZEM 24HR180 M3 PO (14:04)
[2017-10-24 14:31] LABS: ABSOLUTE BASOPHILS 0.1 thou/uL (0.0-0.2); ABSOLUTE EOSINOPHILS 0.2 thou/uL (0.0-0.7); ABSOLUTE MONOCYTES 0.9 thou/uL (0.0-1.2); ABSOLUTE NEUTROPHILS 7.5 thou/uL (1.6-8.1); BASOPHILS 0.6 %; EOSINOPHILS 1.8 %; HEMATOCRIT 27.7 % (37.0-47.0); HEMOGLOBIN 8.8 gm/dL (12.0-15.0); LYMPHOCYTES 10.2 %; MCH 29.1 pg (26.0-34.0); MCHC 31.9 g/dL (28.0-37.0); MCV 91.3 fL (80.0-100.0); MONOCYTES 9.6 %; NUCLEATED RBCS 0 /100WBC; PLATELET COUNT* 323 thou/uL (150-400); POLYS 77.8 %; RBC 3.03 mil/uL (4.20-5.00); RDW-CV 16.8 % (10.5-14.5); WBC 9.6 thou/uL (4.0-11.0)
[2017-10-24 14:48] LABS: ANION GAP 6 mmol/L (7-16); BUN 15 mg/dL (7-18); CALCIUM 8.7 mg/dL (8.5-10.1); CHLORIDE 107 mmol/L (98-107); CO2 31 mmol/L (21-32); CREATININE 0.8 mg/dL (0.6-1.3); GLUCOSE 155 mg/dL (70-99); SODIUM 144 mmol/L (136-145)
[2017-10-24 14:51] LABS: APTT 29.9 Seconds (25.0-31.3); INR 2.8; PROTIME 26.9 Seconds (9.20-11.50)
[2017-10-24 14:59] LABS: ALBUMIN 2.7 g/dL (3.4-5.0); ALKALINE PHOSPHATASE 96 U/L (46-116); NT-PRO BRAIN NAT PEPTIDE 2178 pg/mL (<300); SGOT 17 U/L (15-37); SGPT 18 U/L (30-65); TOTAL BILIRUBIN 0.4 mg/dL (<0.1-1.0); TOTAL PROTEIN 6.2 g/dL (6.4-8.2); TROPONIN-I LEVEL <0.06 ng/mL (<0.06)
--- NOTE | 2017-10-24 17:36 | EKG ---
[place] [address] ELECTROCARDIOGRAM REPORT Name: AMY TIJERINA Room: [place] [address] ADM IN [facility].#: [id number] Admission: 10/24/17 Attend Phys: Kris Paul MD Discharge: Date of : 31 Report #: [id number] THIS REPORT FOR: //name// [facility] ED Test Date: 2017-10-24 Test Time: 13:53:16 Pat Name: AMY TIJERINA Department: Room: Gender: F Head Chopper: : 1930 Requested By: Remigio Carver Order Number: [id number] MD: Ketan Monzon Measurements Intervals [place] Rate: 75 P: LA: QRS: 8 QRSD: 68 T: -74 QT: 541 QTc: 605 Interpretive Statements Atrial fibrillation Low voltage, precordial leads Nonspecific T abnormalities, diffuse leads Prolonged QT interval Compared to ECG 09/20/2017 10:13:35 Low QRS voltage now present T-wave abnormality still present Electronically Signed On 10-24-2017 17:35:54 CDT by Ketan Monzon [email or web address] <ELECTRONICALLY SIGNED> By: Ketan Monzon MD, [facility] 10/24/17 1735 1353 1353 Ketan Monzon MD, [facility] /EPI
[2017-10-24 19:33] VITALS: BP 120/56
[2017-10-24 20:00] VITALS: BP 140/68
[2017-10-25 00:19] VITALS: BP 139/61
[2017-10-25 04:00] VITALS: BP 132/67
[2017-10-25 04:59] LABS: HEMATOCRIT 25.3 % (37.0-47.0); MCH 28.7 pg (26.0-34.0); MCHC 31.6 g/dL (28.0-37.0); MCV 90.7 fL (80.0-100.0); MPV 7.6 fl. (7.2-11.1); NUCLEATED RBCS 0 /100WBC; PLATELET COUNT* 296 thou/uL (150-400); RBC 2.79 mil/uL (4.20-5.00); RDW-CV 16.8 % (10.5-14.5); WBC 12.2 thou/uL (4.0-11.0)
[2017-10-25 05:05] LABS: INR 2.4; PROTIME 23.3 Seconds (9.20-11.50)
[2017-10-25 05:07] LABS: CALCIUM 7.9 mg/dL (8.5-10.1); CREATININE 0.7 mg/dL (0.6-1.3)
[2017-10-25 05:32] LABS: POTASSIUM 2.7 mmol/L (3.5-5.1)
[2017-10-25 06:04] LABS: ABSOLUTE EOSINOPHILS 0.2 thou/uL (0.0-0.7); ABSOLUTE LYMPHOCYTES 1.1 thou/uL (0.8-5.3); ABSOLUTE MONOCYTES 0.4 thou/uL (0.0-1.2); ABSOLUTE NEUTROPHILS 10.5 thou/uL (1.6-8.1); PLATELET ESTIMATE ADEQUATE
[2017-10-25 08:00] VITALS: BP 121/49
[2017-10-25 12:00] VITALS: BP 100/40
[2017-10-25 16:12] VITALS: BP 116/47
[2017-10-25 20:00] VITALS: BP 141/60
[2017-10-26] VITALS (7 sets, daily range): BP systolic 100–126; BP diastolic 39–85
[2017-10-26 04:55] LABS: HEMOGLOBIN 7.7 gm/dL (12.0-15.0); MPV 7.6 fl. (7.2-11.1); RDW-CV 16.9 % (10.5-14.5)
[2017-10-26 04:57] LABS: ABSOLUTE EOSINOPHILS 0.2 thou/uL (0.0-0.7); ABSOLUTE MONOCYTES 1.4 thou/uL (0.0-1.2); ABSOLUTE NEUTROPHILS 9.1 thou/uL (1.6-8.1); BASOPHILS 0.3 %; EOSINOPHILS 1.6 %; HEMATOCRIT 23.8 % (37.0-47.0); LYMPHOCYTES 8.7 %; MCH 29.3 pg (26.0-34.0); MCHC 32.4 g/dL (28.0-37.0); MCV 90.4 fL (80.0-100.0); NUCLEATED RBCS 0 /100WBC; PLATELET COUNT* 296 thou/uL (150-400); POLYS 77.4 %; RBC 2.63 mil/uL (4.20-5.00); WBC 11.7 thou/uL (4.0-11.0)
[2017-10-26 05:09] LABS: INR 2.5; PROTIME 24.4 Seconds (9.20-11.50)
[2017-10-26 05:20] LABS: ALBUMIN 2.3 g/dL (3.4-5.0); CALCIUM 8.5 mg/dL (8.5-10.1); CREATININE 0.8 mg/dL (0.6-1.3); POTASSIUM 3.6 mmol/L (3.5-5.1); TOTAL BILIRUBIN 0.3 mg/dL (<0.1-1.0); TOTAL PROTEIN 5.6 g/dL (6.4-8.2)
[2017-10-27 00:27] VITALS: BP 105/49
[2017-10-27 03:53] LABS: ABSOLUTE EOSINOPHILS 0.3 thou/uL (0.0-0.7); ABSOLUTE LYMPHOCYTES 1.2 thou/uL (0.8-5.3); ABSOLUTE MONOCYTES 0.9 thou/uL (0.0-1.2); ABSOLUTE NEUTROPHILS 5.2 thou/uL (1.6-8.1); BASOPHILS 0.4 %; EOSINOPHILS 3.7 %; HEMATOCRIT 24.3 % (37.0-47.0); HEMOGLOBIN 7.9 gm/dL (12.0-15.0); LYMPHOCYTES 15.3 %; MCH 29.3 pg (26.0-34.0); MCHC 32.4 g/dL (28.0-37.0); MCV 90.4 fL (80.0-100.0); MONOCYTES 12.3 %; MPV 7.4 fl. (7.2-11.1); NUCLEATED RBCS 0 /100WBC; PLATELET COUNT* 308 thou/uL (150-400); POLYS 68.3 %; RBC 2.68 mil/uL (4.20-5.00); RDW-CV 17.3 % (10.5-14.5); WBC 7.6 thou/uL (4.0-11.0)
[2017-10-27 04:04] LABS: INR 2.5; PROTIME 23.8 Seconds (9.20-11.50)
[2017-10-27 04:11] VITALS: BP 116/51
[2017-10-27 04:20] LABS: ALBUMIN 2.3 g/dL (3.4-5.0); CALCIUM 8.8 mg/dL (8.5-10.1); CREATININE 0.7 mg/dL (0.6-1.3); POTASSIUM 4.1 mmol/L (3.5-5.1); TOTAL BILIRUBIN 0.4 mg/dL (<0.1-1.0); TOTAL PROTEIN 5.8 g/dL (6.4-8.2)
[2017-10-27 08:12] VITALS: BP 136/57
[2017-10-27 11:44] VITALS: BP 126/50
[2017-10-27 15:43] VITALS: BP 98/43
[2017-10-27 20:00] VITALS: BP 117/45
[2017-10-28] VITALS: BP 114/52
[2017-10-28 04:00] VITALS: BP 143/59
[2017-10-28 05:39] LABS: PROTIME 19.7 Seconds (9.20-11.50)
[2017-10-28 07:55] VITALS: BP 123/52
[2017-10-28 12:00] VITALS: BP 122/85
[2017-10-28 16:00] VITALS: BP 121/50
[2017-10-28 19:45] VITALS: BP 140/58
[2017-10-29] VITALS (7 sets, daily range): BP systolic 105–130; BP diastolic 47–67
[2017-10-29 00:08] LABS: HEMATOCRIT 25.4 % (37.0-47.0); HEMOGLOBIN 8.1 gm/dL (12.0-15.0)
[2017-10-29 03:44] LABS: HEMATOCRIT 25.2 % (37.0-47.0); HEMOGLOBIN 8.1 gm/dL (12.0-15.0); MCHC 32.3 g/dL (28.0-37.0); MCV 89.7 fL (80.0-100.0); MPV 7.2 fl. (7.2-11.1); RBC 2.81 mil/uL (4.20-5.00); RDW-CV 17.2 % (10.5-14.5); WBC 6.3 thou/uL (4.0-11.0)
[2017-10-29 03:57] LABS: ALBUMIN 2.4 g/dL (3.4-5.0); CALCIUM 8.8 mg/dL (8.5-10.1); CREATININE 0.8 mg/dL (0.6-1.3); POTASSIUM 3.8 mmol/L (3.5-5.1); TOTAL BILIRUBIN 0.2 mg/dL (<0.1-1.0); TOTAL PROTEIN 5.9 g/dL (6.4-8.2)
[2017-10-29 04:02] LABS: INR 1.9
[2017-10-30 03:30] VITALS: BP 110/44
[2017-10-30 05:03] LABS: INR 1.7; PROTIME 16.3 Seconds (9.20-11.50)
[2017-10-30 08:10] VITALS: BP 133/50
[2017-10-30 12:00] VITALS: BP 126/53
[2017-10-30 13:21] VITALS: BP 126/53
[2017-10-30] MEDS ORDERED: EPOGEN4000 UNIT/ SUBQ (13:53)
--- NOTE | 2018-01-17 13:19 | D ---
[address] [address] DISCHARGE SUMMARY Name: TIJERINAAMY Neri Room: [address] IN .R.#: [id number] Admission: 10/24/17 Attend Phys: Kris Paul MD Discharge: 10/30/17 Date of : 31 Report #: [id number] THIS REPORT FOR: //name// CC: Kris Max DATE OF SERVICE: 10/30/2017 ADDENDUM Discharge summary was completed on the day of discharge; however, discharge was held on 10/29/2017 because the defibrillator did go off 3 times. Cardiology was consulted. She was monitored for 24 hours. She did discharge to the home setting today for continued home health, PT, OT and nursing. She will go home on insulin and they will do teaching in the home setting and some teaching was also given today prior to discharge. DISCHARGE DIAGNOSES: Cardiac debility, acute renal failure, acute kidney injury and debility. DISCHARGE INSTRUCTIONS: Heart healthy renal diet. Check blood glucose daily, ambulate in the hallway. Continue with previous discharge summary for further details. <ELECTRONICALLY SIGNED> By: Mireille Espinosa DO 01/17/18 1319 1554 1741Mireille Espinosa DO /nt
== END 2017-10-30 16:51 | DRG 177 ==
LOC: M.ERS 13:45 → M.2W 16:34 → M.TBA-ER 16:34 → M.2W 19:48
PROVIDERS: Emergency Medicine Emergency Medical Services; Internal Medicine; ADMIT Internal Medicine
DX: J69.0 Pneumonitis due to inhalation of food and vomit (principal); I50.33 Acute on chronic diastolic (congestive) heart failure; J96.90 Respiratory failure, unspecified, unspecified whether with hypoxia or hypercapnia; Z96.651 Presence of right artificial knee joint; K21.9 Gastro-esophageal reflux disease without esophagitis; Z96.643 Presence of artificial hip joint, bilateral; G51.0 Bell's palsy; J44.9 Chronic obstructive pulmonary disease, unspecified; E87.6 Hypokalemia; M19.90 Unspecified osteoarthritis, unspecified site; R19.7 Diarrhea, unspecified; D63.8 Anemia in other chronic diseases classified elsewhere; K20.9 Esophagitis, unspecified; Z96.1 Presence of intraocular lens; I48.91 Unspecified atrial fibrillation; Z90.710 Acquired absence of both cervix and uterus; Z90.49 Acquired absence of other specified parts of digestive tract; Z95.0 Presence of cardiac pacemaker; Z98.41 Cataract extraction status, right eye; Z87.440 Personal history of urinary (tract) infections; Z98.42 Cataract extraction status, left eye; Z79.01 Long term (current) use of anticoagulants; Z79.899 Other long term (current) drug therapy; Z91.041 Radiographic dye allergy status; Z87.81 Personal history of (healed) traumatic fracture; Z87.891 Personal history of nicotine dependence; Z85.118 Personal history of other malignant neoplasm of bronchus and lung; Z90.2 Acquired absence of lung [part of]

== ENCOUNTER 2017-11-09 13:41 | Emergency (ER) | payer MEDICARE, OTHER ==
[~2017-11-09] VITALS: Ht 160 cm; Wt 72.6 kg
[~2017-11-09 13:41] MED LIST changes: +DILTIAZEM 24HR180 M3 PO; +EPOGEN4000 UNIT/ SUBQ; +IRON325 PO; +KLOR-CON 1010 MEQ PO
[2017-11-09 14:05] LABS: ABSOLUTE BASOPHILS 0.1 thou/uL (0.0-0.2); ABSOLUTE EOSINOPHILS 0.2 thou/uL (0.0-0.7); ABSOLUTE LYMPHOCYTES 1.2 thou/uL (0.8-5.3); ABSOLUTE MONOCYTES 0.8 thou/uL (0.0-1.2); ABSOLUTE NEUTROPHILS 4.6 thou/uL (1.6-8.1); BASOPHILS 0.9 %; EOSINOPHILS 2.2 %; HEMATOCRIT 31.4 % (37.0-47.0); HEMOGLOBIN 10.1 gm/dL (12.0-15.0); LYMPHOCYTES 18.1 %; MCH 28.4 pg (26.0-34.0); MCHC 32.1 g/dL (28.0-37.0); MCV 88.5 fL (80.0-100.0); MONOCYTES 11.2 %; MPV 7.2 fl. (7.2-11.1); NUCLEATED RBCS 0 /100WBC; PLATELET COUNT* 468 thou/uL (150-400); POLYS 67.6 %; RBC 3.55 mil/uL (4.20-5.00); RDW-CV 17.2 % (10.5-14.5); WBC 6.8 thou/uL (4.0-11.0)
[2017-11-09 14:17] LABS: CALCIUM 8.7 mg/dL (8.5-10.1); CREATININE 0.8 mg/dL (0.6-1.3); POTASSIUM 3.3 mmol/L (3.5-5.1)
[2017-11-09 14:24] LABS: ALBUMIN 2.7 g/dL (3.4-5.0); TOTAL BILIRUBIN 0.3 mg/dL (<0.1-1.0); TOTAL PROTEIN 6.5 g/dL (6.4-8.2); TROPONIN-I LEVEL 0.14 ng/mL (<0.06)
[2017-11-09 15:16] VITALS: BP 121/56
--- NOTE | 2017-11-12 11:04 | EKG ---
[place] [address] ELECTROCARDIOGRAM REPORT Name: AMY TIJERINA Room: [facility]#: [id number] Admission: 11/09/17 Attend Phys: Discharge: 11/09/17 Date of : 31 Report #: [id number] THIS REPORT FOR: //name// [facility] ED Test Date: 2017-11-09 Test Time: 14:07:47 Pat Name: AMY TIJERINA Department: Room: Gender: F Satellite Tv Installer: JO : 1930 Requested By: Nish Stokes Order Number: [id number] MD: Ketan Monzon Measurements Intervals [place] Rate: 81 P: OR: QRS: 11 QRSD: 78 T: -17 QT: 401 QTc: 466 Interpretive Statements Atrial fibrillation Low voltage, precordial leads Borderline T abnormalities, inferior leads Compared to ECG 10/24/2017 13:53:16 Prolonged QT interval no longer present T-wave abnormality still present Electronically Signed On 11-12-2017 11:03:46 CDT by Ketan Monzon [email or web address] <ELECTRONICALLY SIGNED> By: Ketan Monzon MD, [facility] 11/12/17 1103 1407 140 Ketan Monzon MD, [facility] /EPI
== END 2017-11-09 16:05 | disposition home or self-care (01) ==
LOC: M.ERS 13:41
PROVIDERS: Emergency Medicine
DX: A04.72 Enterocolitis due to Clostridium difficile, not specified as recurrent (principal); I48.91 Unspecified atrial fibrillation; K21.9 Gastro-esophageal reflux disease without esophagitis; Z96.643 Presence of artificial hip joint, bilateral; Z90.710 Acquired absence of both cervix and uterus; Z90.49 Acquired absence of other specified parts of digestive tract; Z85.118 Personal history of other malignant neoplasm of bronchus and lung; Z91.041 Radiographic dye allergy status

== ENCOUNTER 2018-12-05 11:41 | Emergency (ER) | payer MEDICARE, OTHER ==
[~2018-12-05] VITALS: Ht 160 cm; Wt 69.4 kg
[2018-12-05] MEDS ORDERED: TRAMADOL 50 MG50 MG PO (12:10)
[2018-12-05] MEDS ORDERED: TYLENOL325 MG (12:11)
[2018-12-05] MEDS ORDERED: UNICOMPLEX M TA1 TA1 PO (12:12)
[2018-12-05] MEDS ORDERED: DUONEB (12:12)
[2018-12-05] MEDS ORDERED: OYSTER SHELL 51 EACH PO (12:13)
[2018-12-05] MEDS ORDERED: ELIQUIS5 MG PO (12:14)
[2018-12-05 12:38] LABS: URINE BILIRUBIN NEGATIVE (Negative); URINE BLOOD 1+ (Negative); URINE CLARITY CLEAR; URINE COLOR YELLOW; URINE GLUCOSE-RANDOM NEGATIVE (Negative); URINE KETONES NEGATIVE (Negative); URINE LEUKOCYTES-REFLEX NEGATIVE (Negative); URINE NITRITE-REFLEX NEGATIVE (Negative); URINE PROTEIN NEGATIVE (Negative); URINE SPECIFIC GRAVITY <= 1.005 (1.005-1.030); URINE UROBILINOGEN 0.2 E.U./dl (0.2-1.0)
[2018-12-05 13:04] LABS: SQUAMOUS 0-3 Few /LPF (0-3); URINE WBC-REFLEX 0-5 Rare /HPF (0-5)
[2018-12-05 13:05] LABS: BACTERIA-REFLEX >30 Many /HPF (None Seen); CRYSTALS None Seen /LPF (None Seen); HYALINE CASTS 0-3 Few /LPF (None Seen); MUCUS 0-3 Light strn/LPF (None Seen); URINE RBC 0-2 Rare /HPF (0-2)
[2018-12-05 13:32] LABS: ABSOLUTE EOSINOPHILS 0.1 thou/uL (0.0-0.7); ABSOLUTE LYMPHOCYTES 0.9 thou/uL (0.8-5.3); ABSOLUTE MONOCYTES 0.7 thou/uL (0.0-1.2); BASOPHILS 0.5 %; EOSINOPHILS 0.8 %; HEMATOCRIT 35.5 % (37.0-47.0); HEMOGLOBIN 11.8 gm/dL (12.0-15.0); LYMPHOCYTES 11.7 %; MCH 30.8 pg (26.0-34.0); MCHC 33.2 g/dL (28.0-37.0); MCV 92.6 fL (80.0-100.0); MONOCYTES 9.1 %; MPV 7.7 fl. (7.2-11.1); NUCLEATED RBCS 0 /100WBC; PLATELET COUNT* 411 thou/uL (150-400); POLYS 77.9 %; RBC 3.83 mil/uL (4.20-5.00); RDW-CV 14.1 % (10.5-14.5); WBC 7.7 thou/uL (4.0-11.0)
[2018-12-05 13:45] LABS: CALCIUM 9.1 mg/dL (8.5-10.1); CREATININE 0.8 mg/dL (0.6-1.3); POTASSIUM 4.1 mmol/L (3.5-5.1)
[2018-12-05 13:49] LABS: TOTAL BILIRUBIN 0.6 mg/dL (<0.1-1.0); TOTAL PROTEIN 6.8 g/dL (6.4-8.2)
[2018-12-05] MEDS ORDERED: KEFLEX500 M1 PO (14:26)
[2018-12-05 14:43] VITALS: BP 137/65
== END 2018-12-05 14:47 | disposition home or self-care (01) ==
LOC: M.ERS 11:41
PROVIDERS: Personal Emergency Response Attendant
DX: N39.0 Urinary tract infection, site not specified (principal); K80.20 Calculus of gallbladder without cholecystitis without obstruction; I48.91 Unspecified atrial fibrillation; K21.9 Gastro-esophageal reflux disease without esophagitis; Z96.643 Presence of artificial hip joint, bilateral; Z96.1 Presence of intraocular lens; Z90.710 Acquired absence of both cervix and uterus; Z90.49 Acquired absence of other specified parts of digestive tract; Z87.440 Personal history of urinary (tract) infections; Z85.118 Personal history of other malignant neoplasm of bronchus and lung; Z91.041 Radiographic dye allergy status

== ENCOUNTER 2018-12-28 21:42 | Inpatient (IN) | payer MEDICARE, OTHER ==
[~2018-12-28] VITALS: Ht 160 cm; Wt 76.2 kg
[~2018-12-28 21:42] MED LIST changes: +DUONEB; +ELIQUIS5 MG PO; +KEFLEX500 M1 PO; +OYSTER SHELL 51 EACH PO; +TYLENOL325 MG; +UNICOMPLEX M TA1 TA1 PO
[2018-12-28 21:47] VITALS: BP 158/77
[2018-12-28] MEDS ORDERED: MELATONIN3 MG PO (21:51)
[2018-12-28] MEDS ORDERED: OYSTER SHELL 51 EACH PO (21:51)
[2018-12-28] MEDS ORDERED: COLACE100 MG PO (21:51)
[2018-12-28] MEDS ORDERED: VITA-BEE WITH1 EACH (21:52)
[2018-12-28] MEDS ORDERED: PROBIOTIC1 EAC1 (21:52)
[2018-12-28 22:06] LABS: HEMATOCRIT 33.2 % (37.0-47.0); MCH 31.1 pg (26.0-34.0); MCHC 33.2 g/dL (28.0-37.0); MCV 93.8 fL (80.0-100.0); NUCLEATED RBCS 0 /100WBC; PLATELET COUNT* 403 thou/uL (150-400); RBC 3.54 mil/uL (4.20-5.00); WBC 13.5 thou/uL (4.0-11.0)
[2018-12-28 22:23] LABS: ANION GAP 9 mmol/L (7-16); BUN 14 mg/dL (7-18); CHLORIDE 101 mmol/L (98-107); CO2 28 mmol/L (21-32); CREATININE 0.9 mg/dL (0.6-1.3); GLUCOSE 172 mg/dL (70-99); POTASSIUM 3.6 mmol/L (3.5-5.1); SODIUM 138 mmol/L (136-145)
[2018-12-28 22:28] LABS: ALKALINE PHOSPHATASE 109 U/L (46-116); NT-PRO BRAIN NAT PEPTIDE 4387 pg/mL (<300); SGOT 14 U/L (15-37); SGPT 16 U/L (30-65); TOTAL BILIRUBIN 0.7 mg/dL (<0.1-1.0); TROPONIN-I LEVEL <0.06 ng/mL (<0.06)
[2018-12-28 23:26] LABS: ABSOLUTE LYMPHOCYTES 0.3 thou/uL (0.8-5.3); ABSOLUTE MONOCYTES 0.7 thou/uL (0.0-1.2); ABSOLUTE NEUTROPHILS 12.6 thou/uL (1.6-8.1)
[2018-12-28 23:29] LABS: CLUMPED PLTS RARE; LARGE PLATELETS OCCASIONAL; PLATELET ESTIMATE INCREASED; POIKILOCYTOSIS 1+
--- NOTE | 2018-12-28 23:45 | NUR ---
PT RETURNED FROM CT.
[2018-12-29] VITALS (7 sets, daily range): BP systolic 116–140; BP diastolic 62–76
--- NOTE | 2018-12-29 00:17 | NUR ---
REPORT CALLED TO SANDOVAL KHAN RN.PT BEING ADMITTED TO ROOM 210.
--- NOTE | 2018-12-29 05:15 | NUR ---
PT HAS SLEPT QUIETLY SINCE ADMISSION. HAS DENIED PAIN OR PROBLEMS. O2 2L. TELE AFIB. AM LABS TO BE DRAWN. PT TURNED AND REPOSITIONED Q2 HOURS AND PRN FOR SKIN CARE AND COMFORT. AO TO SELF, SITUATION, PLEASANT. BED ALARM ON FOR SAFETY,CALL LITE IN EASY REACH. RFA IVF INFUSING PER PUMP. 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
[2018-12-29 08:22] LABS: URINE BILIRUBIN NEGATIVE (Negative); URINE BLOOD 3+ (Negative); URINE CLARITY CLEAR; URINE COLOR YELLOW; URINE GLUCOSE-RANDOM NEGATIVE (Negative); URINE KETONES TRACE (Negative); URINE LEUKOCYTES-REFLEX NEGATIVE (Negative); URINE PROTEIN 1+ (Negative); URINE SPECIFIC GRAVITY >= 1.030 (1.005-1.030); URINE UROBILINOGEN 0.2 E.U./dl (0.2-1.0)
[2018-12-29 08:25] LABS: URINE NITRITE-REFLEX POSITIVE (Negative)
[2018-12-29 08:48] LABS: SQUAMOUS 0-3 Few /LPF (0-3)
[2018-12-29 08:49] LABS: CASTS None Seen /LPF (None Seen); CRYSTALS None Seen /LPF (None Seen); MUCUS 0-3 Light strn/LPF (None Seen); URINE WBC-REFLEX 6-15 Few /HPF (0-5)
--- NOTE | 2018-12-29 11:56 | NUR ---
PATIENT A/O TO PERSON AND PLACE THIS MORNING, HAS HX OF DEMENTIA. PATIENT TRACING AFIB ON THE SENIOR EMBEDDED SOFTWARE ENGINEER. O2 IN PLACE AT 2L/NC. PATIENT DENIES PAIN. IV FLUIDS AND ANTIBIOTICS INFUSING ORDERED. PATIENT UP WITH MOD ASSIST OF 1 AND GB THIS MORNING TO BSC, UA SENT. PATIENT'S FAMILY AT BEDSIDE. NEW CARDIO CONSULT NOTED PER DR BAEZ, REGARDING ELEVATED TROPONINS. PATIENT IN ISOLATION FOR HX OF MRSA. CALL LIGHT WITHIN REACH. WILL CONTINUE WITH PLAN OF CARE.
--- NOTE | 2018-12-29 18:46 | NUR ---
PATIENT HAS BEEN A/O TO PERSON AND PLACE, CONFUSED AT TIMES. PATIENT CONTINUES ON THE STONE CARVER, TRACING AFIB. CARDIOLOGY CONSULTED THIS SHIFT FOR ELEVATED TROPONINS. IV FLUIDS AND ANTIBIOTICS INFUSING ORDERED. PATIENT UP TO BSC WITH SBA AND WALKER, HAD SEVERAL BMS THIS SHIFT. HAS HAD COMPLAINTS OF AN UPSET STOMACH, DENIED THE NEED FOR ANY INTERVENTION. TURNED EVERY 2 HOURS WITH HEELS ELEVATED. FAMILY AT BEDSIDE THROUGHOUT THE SHIFT. REMAINS IN CONTACT ISOLATION FOR HX OF MRSA. FALL PRECAUTIONS IN PLACE. HOURLY ROUNDING COMPLETED. CALL LIGHT WITHIN REACH. WILL CONTINUE WITH PLAN OF CARE.
[2018-12-30] VITALS: BP 123/76
[2018-12-30 03:45] VITALS: BP 135/70
--- NOTE | 2018-12-30 04:48 | NUR ---
PT SLEPT ON AND OFF OVERNIGHT. UP WITH ASSIST TO BSC TO VOID SMALL AMOUNTS. BLADDER SCAN PERFORMED POST VOID AND RESIDUAL LESS THAN 50 MLS. AO TO SELF AND SITUATION, AWAKENED DURING THE NIGHT CONFUSED AND FORGETFUL TO PLACE AND SITUATION BUT REMAINED CALM AND PLEASANT. O2 2L NC. PT TURNED AND REPOSITIONED Q2 HOURS AND PRN FOR SKIN CARE AND COMFORT. R KNEE BRACE AND STOCKING IN PLACE. REMAINS ON CONTACT ISOLATION FOR MRSA HX SKIN. TELE AFIB. VSS, AFEBRILE OVERNIGHT. EATING SNACK OF VANILLA ICE CREAM AND CRACKERS OVERNIGHT WHILE WATCHING TV. ABLE TO USE CALL LITE MOST OF THE TIME. TAKING PILLS WHOLE WITH WATER AT HS. BED ALARM ON FOR SAFETY.
--- NOTE | 2018-12-30 07:34 | EKG ---
[place] [address] ELECTROCARDIOGRAM REPORT Name: BREEZYAMY Room: [address] ADM IN [facility].#: [id number] Admission: 12/28/18 Attend Phys: Mamie Peoples MD Discharge: Date of : 31 Report #: [id number] THIS REPORT FOR: //name// [facility] ED Test Date: 2018-12-28 Test Time: 21:51:13 Pat Name: AMY TIJERINA Department: Room: [facility] Gender: F Sample Builder: AJ : 1930 Requested By: Jing Gordon Order Number: [id number] MD: Ketan Monzon Measurements Intervals [place] Rate: 117 P: CT: QRS: 12 QRSD: 77 T: -6 QT: 320 QTc: 447 Interpretive Statements Atrial fibrillation Multiple ventricular premature complexes Compared to ECG 11/09/2017 14:07:47 Ventricular premature complex(es) now present Electronically Signed On 12-30-2018 7:34:38 CDT by Ketan Monzon [email or web address] <ELECTRONICALLY SIGNED> By: Ketan Monzon MD, [facility] 12/30/18 0734 50 50 Ketan Monzon MD, [facility] /EPI
[2018-12-30 08:00] VITALS: BP 122/54
[2018-12-30 08:36] LABS: HEMATOCRIT 27.8 % (37.0-47.0); HEMOGLOBIN 9.2 gm/dL (12.0-15.0); MCH 31.3 pg (26.0-34.0); MCHC 33.2 g/dL (28.0-37.0); MCV 94.4 fL (80.0-100.0); MPV 6.9 fl. (7.2-11.1); RBC 2.95 mil/uL (4.20-5.00); RDW-CV 14.1 % (10.5-14.5); WBC 6.3 thou/uL (4.0-11.0)
[2018-12-30 08:43] LABS: ALBUMIN 2.2 g/dL (3.4-5.0); CALCIUM 8.3 mg/dL (8.5-10.1); CREATININE 0.8 mg/dL (0.6-1.3); POTASSIUM 3.5 mmol/L (3.5-5.1); TOTAL BILIRUBIN 0.3 mg/dL (<0.1-1.0); TOTAL PROTEIN 5.7 g/dL (6.4-8.2)
--- NOTE | 2018-12-30 10:40 | CON ---
[address] [address] CONSULTATION Name: AMY TIJERINA Neri Room: [address] IN ..#: [id number] Admission: 12/28/18 Attend Phys: Mamie Peoples MD Discharge: Date of : 31 Report #: [id number] THIS REPORT FOR: //name// CC: ELIANA BRITO DO Eliana Peoples DATE OF SERVICE: 12/29/2018 CARDIOLOGY CONSULTATION HISTORY OF PRESENT ILLNESS: The patient is an 88-year-old white female, resident of a senior care, was asked to see in the hospital today after she was noted to have an abnormal troponin. The patient has no history of coronary artery disease. She does have a history of atrial fibrillation and has been on Eliquis. The history is obtained from the , who is present. The patient has dementia. She has never been cardioverted. She has been chronically anticoagulated with Eliquis. 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 Recently, she has been vomiting. Her blood pressure noted to be elevated. She was brought to [place] by ambulance last night and admitted. There has been no history of chest pain. She does have chronic dyspnea. No recent syncope. She is noted to have an abnormal troponin. Cardiology consultation was requested. PAST MEDICAL HISTORY: Significant for knee surgery, torn meniscus in her knee. She wears a brace. She has had an appendectomy and bilateral hip surgery. She has a history of hypertension. MEDICATIONS: At the senior care consists of Lasix, omeprazole, simvastatin, warfarin, diltiazem, atenolol, and lisinopril. ALLERGIES: SHE HAS A ____ TO IODINE. FAMILY HISTORY: Positive for heart disease. SOCIAL HISTORY: She is , although her lives at home in [place]. She is in a senior care in [place], quit smoking years ago. No alcohol abuse. REVIEW OF SYSTEMS: She has had no history of stroke. She had lung cancer in the past, had previous thoracotomy. No history of peptic ulcer disease, liver disease, kidney disease, psychiatric illness or chronic skin condition. PHYSICAL EXAMINATION: GENERAL: Revealed an elderly frail appearing female, lying in [place] [address] CONSULTATION Name: AMY TIJERINA Room: [address]#: [id number] Admission: 12/28/18 Attend Phys: Mamie Peoples MD Discharge: Date of : 31 Report #: [id number] VITAL SIGNS: She had a blood pressure 140/70, pulse is 90. She is afebrile. HEENT: She was anicteric. Conjunctivae are pink. Mucous membranes are moist. NECK: Veins do not appear distended. CHEST: Clear to auscultation. CARDIOVASCULAR: Regular rate and rhythm, grade 3 systolic ejection murmur along the sternal border. ABDOMEN: Soft. EXTREMITIES: Had trace edema. SKIN: Cool and dry. NEUROLOGIC: Nonfocal. LYMPH: No adenopathy. MUSCULOSKELETAL: No joint effusion. RADIOLOGICAL DATA: Her ECG on admission showed atrial fibrillation with an increased ventricular response rate, occasional PVC. There were no paced beats noted. Her workup, she had previous echocardiogram a year ago in 08/2017 here at [facility] that showed an ejection fraction of 65%, biatrial enlargement, mild aortic stenosis, mild mitral regurgitation. Her workup last night in the Emergency Room, she had a chest x-ray that showed right lower lobe infiltrate. CT scan of the abdomen was done last night that showed pneumonia, evidence of diverticulosis, gallstones. LABORATORY WORK: Sodium 138, creatinine 0.9, and glucose 172. Albumin 3.0. Troponin 0.2, it was 0.14 in 2017. White blood cell count 13.5 and hemoglobin 11. IMPRESSION AND RECOMMENDATIONS: 1. Borderline troponin. In light of her advanced age, multiple medical problems and severe dementia, I would recommend no further cardiac evaluation. 2. Mild aortic stenosis. 3. Nausea and vomiting. 4. Degenerative joint disease. 5. History of lung cancer. 6. Diverticulosis. 7. Gallstones. 8. Hyperlipidemia. The patient is on a statin drug. 9. Sick sinus syndrome. The patient has a pacemaker in place. <ELECTRONICALLY SIGNED> By: Ketan Monzon MD, [facility] 12/30/18 1040 1104 2058Dajacob Monzon MD, FACC /nt
[2018-12-30 13:36] VITALS: BP 123/63
[2018-12-30 17:38] VITALS: BP 128/59
--- NOTE | 2018-12-30 18:33 | NUR ---
ASSUMED PT CARE REPORT RECEIVED FROM NURSE. PT IS AOX4, AFIB ON TRICHOLOGIST. ON 2 L NC. SKIN IS INTACT. IV ABX GIVEN., NS INFUSING AT 50 CC PER HOUR. ISOLATION FOR MRSA MAINTAINED. PHYSICAL THERAPY WORKED WITH PT. WILL CONTINUE TO MONITOR PT.
[2018-12-30 19:35] VITALS: BP 135/61
[2018-12-31] VITALS: BP 137/63
[2018-12-31 04:00] VITALS: BP 144/62
[2018-12-31 04:23] LABS: ABSOLUTE BASOPHILS 0.1 thou/uL (0.0-0.2); ABSOLUTE EOSINOPHILS 0.2 thou/uL (0.0-0.7); ABSOLUTE LYMPHOCYTES 1.3 thou/uL (0.8-5.3); ABSOLUTE MONOCYTES 0.8 thou/uL (0.0-1.2); ABSOLUTE NEUTROPHILS 5.4 thou/uL (1.6-8.1); BASOPHILS 0.9 %; EOSINOPHILS 2.8 %; HEMATOCRIT 29.8 % (37.0-47.0); HEMOGLOBIN 9.8 gm/dL (12.0-15.0); LYMPHOCYTES 16.6 %; MCH 30.9 pg (26.0-34.0); MCHC 32.8 g/dL (28.0-37.0); MCV 94.1 fL (80.0-100.0); MONOCYTES 10.3 %; NUCLEATED RBCS 0 /100WBC; PLATELET COUNT* 379 thou/uL (150-400); POLYS 69.4 %; RBC 3.16 mil/uL (4.20-5.00); RDW-CV 14.3 % (10.5-14.5); WBC 7.8 thou/uL (4.0-11.0)
[2018-12-31 08:00] VITALS: BP 139/60
--- NOTE | 2018-12-31 10:19 | NUR ---
cm completed initial assessment. pt spouse, russell, present @ time of assessment. pt resting w/eyes close. spouse stated the plan is for pt to return to [facility] @ d/c b/c he is no longer able to care for pt at home d/t his age/weakness. pt has walker, w/c. CM left message for Lynne @ [place] to confirm pt status @ [place].
[2018-12-31 11:30] VITALS: BP 125/70
--- NOTE | 2018-12-31 15:58 | 2DMMODE ---
[place] [address] 2 D/M-MODE ECHOCARDIOGRAM Name: AMY TIJERINA Room: [address] IN [facility]#: [id number] Admission: 12/28/18 Attend Phys: Mamie Peoples MD Discharge: Date of : 31 Date of Service: 12/31/18 1558 Report #: [id number] THIS REPORT FOR: //name// APPROVED REPORT Study performed: 12/31/2018 11:44:58 EXAM: Comprehensive 2D, Doppler, and color-flow Echocardiogram Patient Location: In-Patient Room #: 210 Status: routine BSA: 1.79 HR: 76 bpm BP: 139/60 mmHg Rhythm: Atrial Fibrillation Other Information Study Quality: Good Indications Congestive Heart Failure 2D Dimensions IVSd: 10.79 (7-11mm) LVOT Diam: 19.47 (18-24mm) LVDd: 36.16 mm PWd: 10.22 (7-11mm) Ascending Ao: 29.68 (22-36mm) LVDs: 25.00 (25-40mm) Aortic Root: 28.58 mm Volumes Left Atrial Volume (Systole) LA ESV Index: 59.00 mL/m2 Aortic Valve AoV Peak Fernando.: 1.94 m/s AO Peak Gr.: 14.99 mmHg LVOT Max P.09 mmHg AO Mean Gr.: 9.21 mmHg LVOT Mean P.48 mmHg LVOT Max V: 0.52 m/s AO V2 VTI: 37.78 cm LVOT Mean V: 0.31 m/s LOUANN (VTI): 0.75 cm2 LVOT V1 VTI: 9.54 cm TDI Lateral E' Fernando.: 0.13 m/[place] [address] 2 D/M-MODE ECHOCARDIOGRAM Name: AMY TIJERINA Room: [address] IN ..#: [id number] Admission: 12/28/18 Attend Phys: Mamie Peoples MD Discharge: Date of : 31 Date of Service: 12/31/18 1558 Report #: [id number] PV Peak Fernando.: 0.93 m/s PV Peak Gr.: 3.45 mmHg Tricuspid Valve RAP Estimate: 15.00 mmHg TR Peak Gr.: 20.27 mmHg RVSP: 35.00 mmHg PA Pressure: 35.00 mmHg Left Ventricle The left ventricle is normal size. There is normal LV segmental wall motion. There is normal left ventricular wall thickness. Left ventricular systolic function is normal. LVEF is 55-60%. This study is not technically sufficient to allow evaluation of the LV diastolic function due to atrial fibrillation. Right Ventricle Right ventricle is moderately dilated. The right ventricular systolic function is normal. Pacemaker lead is present in the right ventricle. Atria Left atrium is severely dilated. Right atrium is severely dilated. Aortic Valve Severe aortic valve sclerosis. No aortic regurgitation is present. Severe aortic stenosis. Mitral Valve The mitral valve is normal in structure. Mild mitral regurgitation. No evidence of mitral valve stenosis. Tricuspid Valve The tricuspid valve is normal in structure. Mild tricuspid regurgitation. Mild pulmonary hypertension. Pulmonic Valve The pulmonary valve is normal in structure. Trace pulmonic regurgitation. Great Vessels The aortic root is normal in size. IVC is dilated and collapses <50% with inspiration. Pericardium There is no pericardial effusion. <Conclusion> [place] [address] 2 D/M-MODE ECHOCARDIOGRAM Name: TIJERINALIANEA Neri Room: [address] IN [facility]#: [id number] Admission: 12/28/18 Attend Phys: Mamie Peoples MD Discharge: Date of : 31 Date of Service: 12/31/18 1558 Report #: [id number] The left ventricle is normal size. There is normal left ventricular wall thickness. Left ventricular systolic function is normal. LVEF is 55-60%. There is normal LV segmental wall motion. Right ventricle is moderately dilated. Left atrium is severely dilated. Right atrium is severely dilated. Severe aortic valve sclerosis. Severe aortic stenosis. Mild mitral regurgitation. Mild tricuspid regurgitation. Mild pulmonary hypertension. IVC is dilated and collapses <50% with inspiration. <ELECTRONICALLY SIGNED> By: David Del Toro MD, [facility] 12/31/18 1558 1558 1558 David Del Toro MD, FAC /INF
[2018-12-31 16:06] VITALS: BP 127/64
[2018-12-31 19:45] VITALS: BP 122/92
[2019-01-01 00:40] VITALS: BP 141/46
--- NOTE | 2019-01-01 03:08 | NUR ---
RECEIVED REPORT AND ASSUMED CARE AT 1900. VSS. CARDIAC MONITORING IN PLACE. PT DENIES COMPLAINTS OF PAIN. ASSESSMENT COMPLETED CHARTED. PT UP WITH ASSIST TO BSC. BED LOCKED IN LOWEST POSITION, CALL LIGHT WITHIN REACH. BED ALARM ON.
[2019-01-01 04:57] LABS: HEMOGLOBIN 9.6 gm/dL (12.0-15.0); MCH 31.1 pg (26.0-34.0); MCV 94.1 fL (80.0-100.0); RBC 3.08 mil/uL (4.20-5.00); RDW-CV 14.5 % (10.5-14.5); WBC 7.4 thou/uL (4.0-11.0)
[2019-01-01 05:02] VITALS: BP 126/58
[2019-01-01 05:13] LABS: CALCIUM 8.5 mg/dL (8.5-10.1); CREATININE 0.7 mg/dL (0.6-1.3); POTASSIUM 3.4 mmol/L (3.5-5.1)
[2019-01-01 08:09] VITALS: BP 143/90
--- NOTE | 2019-01-01 11:21 | NUR ---
ASSUMED PT CARE AT 0730. ASSESSMENT COMPLETED CHARTED. ABLE TO MAKE NEEDS KNOWN. VSS. FALL PRECAUTIONS IN PLACE. NO C/O PAIN OR DISCOMFORT. UP WITH 1 TO BSC AND CHAIR TODAY. PT VISITING THIS MORNING. WILL CONTINUE TO MONITOR.
[2019-01-01 11:30] VITALS: BP 134/59
--- NOTE | 2019-01-01 15:15 | NUR ---
FAXED AND CALLED UPDATE TO MICHOACANO/GAGANDEEP SANDOVAL RE: POSS. OC العراقي
[2019-01-01 16:00] VITALS: BP 130/54; BP 147/53
[2019-01-01 20:30] VITALS: BP 133/58
[2019-01-02] VITALS: BP 135/63
[2019-01-02 04:00] VITALS: BP 136/68
--- NOTE | 2019-01-02 06:18 | NUR ---
ASSESSMENT CHARTED. VSS. PATIENT UP TO COMMODE 4 TIMES DURING SHIFT. MINIMAL URINE OUTPUT, SMALL BM NOTED. PATIENT FORGETFUL AT TIMES. SKIN INTACT AND SHOWS NO SIGNS OF BREAKDOWN AROUND BRACE ON RIGHT LEG. SACRUM RED AND BLANCABLE. APPLIED BARRIER CREAM PRN. PATIENT TAKING PO MEDICATION WITH EASE. WILL CONTINUE TO MONITOR.
[2019-01-02 08:00] VITALS: BP 146/73
[2019-01-02 11:13] LABS: ALBUMIN 2.5 g/dL (3.4-5.0); DIRECT BILIRUBIN 0.1 mg/dL (<0.1-0.3); TOTAL BILIRUBIN 0.2 mg/dL (<0.1-1.0); TOTAL PROTEIN 5.9 g/dL (6.4-8.2)
[2019-01-02 11:20] VITALS: BP 146/73
--- NOTE | 2019-01-02 12:23 | NUR ---
DC delayed today. Updated Lynne at [facility] that Pt will be ready to dc tomorrow. Ex ox completed, Pt will need o2 at dc. Following.
--- NOTE | 2019-01-02 15:53 | NUR ---
ASSUMED PT CARE AT 1930. ASSESSMENT COMPLETED CHARTED. ABLE TO MAKE NEEDS KNOWN. C/O ABDOMINAL PAIN AND THAT SHE "JUST DOESNT FEEL GOOD". NOTIFIED DR AND NEW ORDERS GIVEN. PT WAS GOING TO GO BACK TO SNF BUT REFUSED UNTIL SHE FELT BETTER. PT IS NOW RESTING IN BED. VSS. UP X 1 TO BSC. TRIED TAKING PT OFF O2, DID REST AND EXCERSIZE AND PT O2 DROPPED. PT BACK ON O2. WILL CONTINUE TO MONITOR.
[2019-01-02 16:00] VITALS: BP 145/78
[2019-01-02 16:22] LABS: ALBUMIN 2.5 g/dL (3.4-5.0); CALCIUM 8.7 mg/dL (8.5-10.1); CREATININE 0.8 mg/dL (0.6-1.3); POTASSIUM 3.7 mmol/L (3.5-5.1); TOTAL BILIRUBIN 0.2 mg/dL (<0.1-1.0); TOTAL PROTEIN 5.9 g/dL (6.4-8.2)
[2019-01-02 19:35] VITALS: BP 140/88
[2019-01-03] VITALS: BP 116/68
[2019-01-03 05:02] LABS: HEMATOCRIT 31.1 % (37.0-47.0); HEMOGLOBIN 9.9 gm/dL (12.0-15.0); MCH 30.2 pg (26.0-34.0); MCHC 31.9 g/dL (28.0-37.0); MCV 94.6 fL (80.0-100.0); MPV 7.1 fl. (7.2-11.1); RBC 3.29 mil/uL (4.20-5.00); RDW-CV 14.7 % (10.5-14.5); WBC 9.8 thou/uL (4.0-11.0)
--- NOTE | 2019-01-03 06:07 | NUR ---
PT SLEPT FAIRLY WELL OVERNIGHT, AWAKENED A FEW TIMES OVERNIGHT CONFUSED TO WHERE SHE WAS AND WHY SHE WAS HERE. QUESTIONS ANSWERED AND REASSURANCE GIVEN. AO TO SELF AND SITUATION, CONFUSED AND FORGETFUL AT TIMES. O2 2L SAT 95%. R LEG BRACE IN PLACE. MED SURG STATUS. AM LABS DRAWN. UP WITH ASSISTANCE TO BSC TO VOID OVERNIGHT 3 OR 4 TIMES. RFA IVF INFUSING PER PUMP. 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 POSSIBLE DISCHARGE BACK TO [place] TODAY. ABLE TO USE CALL LITE AND MAKE NEEDS KNOWN, YELLS OUT "HELLO" SOMETIMES FOR ASSISTANCE. CALL LITE IN EASY REACH AND BED ALARM ON FOR SAFETY.
[2019-01-03 08:00] VITALS: BP 146/69
[2019-01-03 09:31] VITALS: BP 146/69
--- NOTE | 2019-01-03 10:52 | NUR ---
Nutrition: Pt admitted with PNA. Regular diet. Pt soundly sleeping during visit. Family stated that she isn't eating much. She does like Ulen Ensure - RD ordered TID. Current wt: 168#. BG 148, alb 2.5, prealb 11.9. Mild risk. Will follow po intake, wt, labs.
--- NOTE | 2019-01-03 11:11 | NUR ---
Pt discharging back to [facility] today, Pt will be skilled. Faxed dc orders. Updated facility. [facility] will supervisor opening and picking to transport between 1-130pm. Chart copied. Nurse report number is [phone]. Updated in room. Order for home o2 sent to facility.
[2019-01-03] MEDS ORDERED: DULCOLAX5 MG PO (12:58)
[2019-01-03] MEDS ORDERED: MILK OF MA400 MG/5 M PO (13:00)
[2019-01-03] MEDS ORDERED: MUCINEX600 MG PO (13:00)
[2019-01-03] MEDS ORDERED: NYAMYC15 GM TOP (13:01)
[2019-01-03] MEDS ORDERED: PHENERGAN 25 MG25 M1 PO (13:02)
[2019-01-03] MEDS ORDERED: CEFDINIR300 MG PO (13:03)
[2019-01-03 13:09] LABS: ALBUMIN 2.4 g/dL (3.4-5.0); CALCIUM 8.4 mg/dL (8.5-10.1); CREATININE 0.7 mg/dL (0.6-1.3); POTASSIUM 3.3 mmol/L (3.5-5.1); TOTAL BILIRUBIN 0.2 mg/dL (<0.1-1.0); TOTAL PROTEIN 5.7 g/dL (6.4-8.2)
--- NOTE | 2019-01-03 18:53 | NUR ---
ASSUMED PT CARE AT 0730. ASSESSMENT COMPLETED CHARTED. ABLE TO MAKE NEEDS KNOWN. IV FLUIDS RUNNING PER EMAR. UP WITH 1 ASSIST. NO C/O PAIN OR DISCOMFORT. DISCHARGE ORDERS CARRIED OUT, IV TAKEN OUT AND CAR DRYER REMOVED. PT LEFT WITH [facility] BY WHEELCHAIR AT 1825. SOME CLOTHES LEFT AT FACILITY, TO BE NOTIFIED.
== END 2019-01-03 18:24 | DRG 177 ==
LOC: M.ERS 21:42 → M.TBA-ER 23:17 → M.ERS 23:17 → M.TBA-ER 23:25 → M.2W 23:25
PROVIDERS: Family Medicine; Internal Medicine; Personal Emergency Response Attendant; ADMIT Family Medicine
DX: J69.0 Pneumonitis due to inhalation of food and vomit (principal); G93.41 Metabolic encephalopathy; R65.10 Systemic inflammatory response syndrome (SIRS) of non-infectious origin without acute organ dysfunction; N39.0 Urinary tract infection, site not specified; N17.9 Acute kidney failure, unspecified; Z96.643 Presence of artificial hip joint, bilateral; Z96.651 Presence of right artificial knee joint; K21.9 Gastro-esophageal reflux disease without esophagitis; K80.50 Calculus of bile duct without cholangitis or cholecystitis without obstruction; I35.0 Nonrheumatic aortic (valve) stenosis; M19.90 Unspecified osteoarthritis, unspecified site; I48.2 Chronic atrial fibrillation; E56.9 Vitamin deficiency, unspecified; D64.9 Anemia, unspecified; G30.9 Alzheimer's disease, unspecified; F02.80 Dementia in other diseases classified elsewhere, unspecified severity, without behavioral disturbance, psychotic disturbance, mood disturbance, and anxiety; E87.6 Hypokalemia; K59.00 Constipation, unspecified; R74.0 Nonspecific elevation of levels of transaminase and lactic acid dehydrogenase [LDH]; K57.90 Diverticulosis of intestine, part unspecified, without perforation or abscess without bleeding; K80.80 Other cholelithiasis without obstruction; E78.5 Hyperlipidemia, unspecified; I49.5 Sick sinus syndrome; I25.10 Atherosclerotic heart disease of native coronary artery without angina pectoris; E86.0 Dehydration; Z95.0 Presence of cardiac pacemaker; Z90.710 Acquired absence of both cervix and uterus; Z87.891 Personal history of nicotine dependence; Z90.49 Acquired absence of other specified parts of digestive tract; Z98.42 Cataract extraction status, left eye; Z98.41 Cataract extraction status, right eye; Z85.118 Personal history of other malignant neoplasm of bronchus and lung; Z91.041 Radiographic dye allergy status; Z82.49 Family history of ischemic heart disease and other diseases of the circulatory system

== ENCOUNTER 2019-06-12 09:27 | Inpatient (IN) | payer MEDICARE, OTHER ==
[~2019-06-12] VITALS: Ht 160 cm; Wt 58.5 kg
[~2019-06-12 09:27] MED LIST changes: +DULCOLAX5 MG PO; +MELATONIN3 MG PO; +MILK OF MA400 MG/5 M PO; +MUCINEX600 MG PO; +NYAMYC15 GM TOP; +PHENERGAN 25 MG25 M1 PO; +PROBIOTIC1 EAC1; -TYLENOL325 MG; +TYLENOL325 MG PO; +VITA-BEE WITH1 EACH PO
[2019-06-12 09:31] VITALS: BP 118/50
[2019-06-12 10:14] LABS: INFLUENZA A ANTIGEN Positive (Negative); INFLUENZA B ANTIGEN Negative (Negative)
[2019-06-12 10:28] LABS: CALCIUM 7.6 mg/dL (8.5-10.1); POTASSIUM 3.6 mmol/L (3.5-5.1)
[2019-06-12 10:39] LABS: ALBUMIN 2.7 g/dL (3.4-5.0); HEMATOCRIT 31.4 % (37.0-47.0); HEMOGLOBIN 10.6 gm/dL (12.0-15.0); MCHC 33.7 g/dL (28.0-37.0); MPV 7.6 fl. (7.2-11.1); NUCLEATED RBCS 0 /100WBC; PLATELET COUNT* 315 thou/uL (150-400); RBC 3.52 mil/uL (4.20-5.00); RDW-CV 16.3 % (10.5-14.5); TOTAL BILIRUBIN 0.3 mg/dL (<0.1-1.0); TOTAL PROTEIN 6.6 g/dL (6.4-8.2); WBC 5.3 thou/uL (4.0-11.0)
[2019-06-12 11:00] LABS: ABSOLUTE LYMPHOCYTES 0.6 thou/uL (0.8-5.3); ABSOLUTE MONOCYTES 1.2 thou/uL (0.0-1.2); ABSOLUTE NEUTROPHILS 3.6 thou/uL (1.6-8.1); PLATELET ESTIMATE ADEQUATE
[2019-06-12 11:01] LABS: ANISOCYTOSIS 1+; HYPOCHROMASIA Occasional; POIKILOCYTOSIS 1+
--- NOTE | 2019-06-12 11:21 | EKG ---
[place] [address] ELECTROCARDIOGRAM REPORT Name: AMY TIJERINA Room: [facility]#: [id number] Admission: 06/12/19 Attend Phys: Discharge: Date of : 32 Date of Service: 06/12/19 0941 Report #: [id number] THIS REPORT FOR: cc: Froylan Dunne MD, Dennis R MD Holkins,Laci Camacho MD [facility] ~ THIS REPORT FOR: //name// [facility] ED Test Date: 2019-06-12 Test Time: 09:41:49 Pat Name: AMY TIJERINA Department: Room: Gender: F Secure Software Assessor: MICHELLE : 1930 Requested By: Nish Stokes Order Number: [id number] MD: Laci King Measurements Intervals [place] Rate: 74 P: AR: QRS: 0 QRSD: 81 T: -17 QT: 417 QTc: 463 Interpretive Statements Atrial fibrillation Borderline T abnormalities, inferior leads Compared to ECG 12/28/2018 21:51:13 T-wave abnormality now present Ventricular premature complex(es) no longer present Electronically Signed On 06-12-2019 11:20:56 SALES OPERATIONS ASSISTANT by Laci King [email or web address] <ELECTRONICALLY SIGNED> By: Laci King MD, [facility] 06/12/19 1120 0 Laci King MD, [facility] /EPI
[2019-06-12 11:50] LABS: URINE BILIRUBIN NEGATIVE (Negative); URINE BLOOD 1+ (Negative); URINE CLARITY CLEAR; URINE COLOR YELLOW; URINE GLUCOSE-RANDOM NEGATIVE (Negative); URINE KETONES NEGATIVE (Negative); URINE LEUKOCYTES-REFLEX NEGATIVE (Negative); URINE NITRITE-REFLEX NEGATIVE (Negative); URINE PROTEIN NEGATIVE (Negative); URINE SPECIFIC GRAVITY 1.015 (1.005-1.030); URINE UROBILINOGEN 0.2 E.U./dl (0.2-1.0)
[2019-06-12 11:59] LABS: BACTERIA-REFLEX 1-9 Few /HPF (None Seen); CASTS None Seen /LPF (None Seen); CRYSTALS None Seen /LPF (None Seen); MUCUS 0-3 Light strn/LPF (None Seen); SQUAMOUS 0-3 Few /LPF (0-3); URINE RBC 3-10 Few /HPF (0-2); URINE WBC-REFLEX 0-5 Rare /HPF (0-5)
[2019-06-12 14:39] VITALS: BP 120/57
[2019-06-12] MEDS ORDERED: DONEPEZIL HCL 55 MG PO (15:53)
[2019-06-12] MEDS ORDERED: IPRAT-ALBUT 0.5-3 ML INH ×2 (16:26→16:27)
--- NOTE | 2019-06-12 19:08 | NUR ---
PT A&OX4 VSS. PT REMAINS ON ISOLATION PRECAUTIONS FOR +FLU. PT HAS NORIEGA CATHETER, PATENT. YELLOW URINE VISIBLE IN COLLECTION BAG. PT MINCONTINENT OF BOWELS. IV TO LFA PATENT, NO REDNESS/SWELLING AT SITE. FALL PRECAUTIONS IN PLACE. PT RESTS IN BED, CALL LIGHT IN REACH. WILL CONTINUE TO MONITOR.
[2019-06-12 22:30] VITALS: BP 99/64
[2019-06-13 04:22] LABS: ABSOLUTE LYMPHOCYTES 0.9 thou/uL (0.8-5.3); ABSOLUTE MONOCYTES 0.9 thou/uL (0.0-1.2); ABSOLUTE NEUTROPHILS 2.2 thou/uL (1.6-8.1); BASOPHILS 0.8 %; EOSINOPHILS 0.5 %; HEMATOCRIT 31.9 % (37.0-47.0); HEMOGLOBIN 10.7 gm/dL (12.0-15.0); LYMPHOCYTES 22.6 %; MCH 30.2 pg (26.0-34.0); MCHC 33.6 g/dL (28.0-37.0); MCV 89.8 fL (80.0-100.0); MONOCYTES 22.4 %; MPV 7.8 fl. (7.2-11.1); NUCLEATED RBCS 0 /100WBC; PLATELET COUNT* 287 thou/uL (150-400); POLYS 53.7 %; RBC 3.56 mil/uL (4.20-5.00); RDW-CV 17.3 % (10.5-14.5); WBC 4.1 thou/uL (4.0-11.0)
[2019-06-13 04:28] LABS: ALBUMIN 2.5 g/dL (3.4-5.0); CALCIUM 7.8 mg/dL (8.5-10.1); CREATININE 0.8 mg/dL (0.6-1.3); POTASSIUM 3.6 mmol/L (3.5-5.1); TOTAL BILIRUBIN 0.2 mg/dL (<0.1-1.0); TOTAL PROTEIN 6.3 g/dL (6.4-8.2)
--- NOTE | 2019-06-13 05:54 | NUR ---
PATIENT ALERT/ORIENTED X2, CONFUSED AND FORGETFUL. PT COUNTER TENDER LIGHT APPOROX EVERY TWO MINUTES ASKING FOR SAME THING. PT TURNED Q2H PER PROTOCAL. PT ON ROOM AIR. PT IS SALINE LOCKED; ON ROOM AIR. PT WITH NORIEGA TO DEPENDENT DRAIN WITH YELLOW URINE. PT WITH RT KNEE BRACE FOR STABILITY ACCORDING TO [facility]. PT GIVEN ULTRAM AT HS FOR KNEE PAIN. SIDERAILS UPX4 AND BED ALARM ON. PT REMAINS IN DROPLET ISOLATION. WILL CONTINUE TO MONITOR.
[2019-06-13 09:45] VITALS: BP 106/52
--- NOTE | 2019-06-13 13:58 | NUR ---
Pt lives at [facility]. SW to continue to follow to assist with safe dc planning. [facility] [phone]
[2019-06-13 16:00] VITALS: BP 103/47
--- NOTE | 2019-06-13 19:28 | NUR ---
PT AWAKE/ALERT, VSS. PT USES CALL LIGHT FREQUENTLY. PT REMAINS ON ISOLATION R/T DX FLU. PT HAS BRACE TO R KNEE PRESENT UPON ADMISSION. PT HAS NO IV AT THIS TIME. PT LIKES CHOCOLATE SUPPLEMENT SHAKES. NORIEGA REMAINS IN PLACE. NORIEGA IS PATENT, YELLOW URINE OBSERVED IN COLLECTION BAG. PT HAS CONFUSION THIS EVENING. FAMILY AT BEDSIDE AT THIS TIME. PT RESTS IN BED WITH CALL LIGHT IN REACH. WILL CONTINUE TO MONITOR.
[2019-06-13 20:20] VITALS: BP 114/62
--- NOTE | 2019-06-14 06:41 | NUR ---
PT SLIGHTLY CONFUSED, FORGETFUL OVERNIGHT BUT PLEASANT AND COOPERATIVE. SLEPT FAIRLY WELL OVERNIGHT WITHOUT COMPLAINTS. R KNEE BRACE REMOVED PER PT REQUEST IN MIDDLE OF NIGHT, BUT WHEN PT AWAKENED THIS MORNING SHE EXPRESSED FRUSTRATION THAT STAFF HAD REMOVED HER R LEG BRACE WHILE SHE WAS SLEEPING. NORIEGA DRAINING YELLOW URINE. TAMIFLU PO GIVEN ORDERED. REMAINS ON DROPLET ISOLATION FOR INFLUENZA. NO IV ACCESS AT THIS TIME-STAFF UNABLE TO START IV. CALL LITE IN EASY REACH, BED ALARM ON FOR SAFETY.
[2019-06-14 08:00] VITALS: BP 105/40
--- NOTE | 2019-06-14 18:28 | NUR ---
PT IS A/O BUT CONFUSED AND FORGETFUL.VSS.NO C/O PAIN.NEW IV INSERTED IN LEFT HAND.PT HAD EPISODE OF N/V AND C/O ABDOMINAL PAIN.DOCOTOR NOTIFIED WITH NEW ORDERS RECEIVED.ABDOMINAL XR COMPLETED.PT WAS ABLE TO HAVE SMALL HARD BOWEL MOVEMENT THIS SHIFT.DROPLET PRECAUTIONS IN PLACE.PT BECAME REALLY CONFUSED AND UPSET THIS EVENING AND REQUESTED FAMILY TO BE CALLED.DAUGHTER ARRIVED AND PT CALMED DOWN.HOURLY ROUNDING COMPELETED FOR PT SAFETY.CALL LIGHT AND FALL PRECAUTIONS IN PLACE.WILL CONTINUE TO MONTIOR FOR DURATION OF SHIFT.
--- NOTE | 2019-06-15 05:20 | NUR ---
PT SLEPT WELL AFTER MIDNIGHT. CO NAUSEA ONCE THIS SHIFT, MEDS GIVEN, NO EMESIS. NORIEGA DRAINGIN YELLOW URINE. L HAND IV SL. HINGED BRACE RLE. MORE ALERT TONIGHT, PLEASANT. PO PAIN MED GIVEN ONCE AT HS FOR CO GENERALIZED ACHES WITH GOOD RESULT. REMAINS ON DROPLET ISOLATION FOR +FLU A. ABLE TO USE CALL LITE AND MAKE NEEDS KNOWN. BED ALARM ON FOR SAFETY.
[2019-06-15 07:20] VITALS: BP 121/55
[2019-06-15] MEDS ORDERED: ZOFRAN ODT4 MG PO (10:05)
[2019-06-15] MEDS ORDERED: TAMIFLU30 MG PO (10:05)
[2019-06-15] MEDS ORDERED: PHENERGAN 25 MG25 M1 PO (10:05)
[2019-06-15] MEDS ORDERED: MELATONIN3 MG PO (10:05)
[2019-06-15] MEDS ORDERED: MIRALAX17 GM PO (10:05)
[2019-06-15] MEDS ORDERED: LEVAQUIN 500 M500 M2 PO (10:05)
[2019-06-15 11:24] VITALS: BP 121/55
--- NOTE | 2019-06-15 18:34 | NUR ---
PATIENT DC TO [facility]. ALL BELONGINGS SENT WITH PATIENT. REPORT CALLED TO RN. CERVANTES AND HARI FOX. SEE ASSESSMENT AND VITALS FOR OTHER DETAILS.
[2019-06-15 19:23] VITALS: BP 121/55
== END 2019-06-15 19:23 | DRG 193 ==
LOC: M.ERS 09:27 → M.TBA-ER 12:20 → M.3W 12:20
PROVIDERS: Emergency Medicine; ADMIT Internal Medicine
DX: J10.1 Influenza due to other identified influenza virus with other respiratory manifestations (principal); G93.41 Metabolic encephalopathy; E44.0 Moderate protein-calorie malnutrition; I10 Essential (primary) hypertension; R73.03 Prediabetes; Z96.1 Presence of intraocular lens; I48.91 Unspecified atrial fibrillation; Z96.651 Presence of right artificial knee joint; D64.9 Anemia, unspecified; K21.9 Gastro-esophageal reflux disease without esophagitis; Z96.643 Presence of artificial hip joint, bilateral; E86.0 Dehydration; Z90.710 Acquired absence of both cervix and uterus; Z90.49 Acquired absence of other specified parts of digestive tract; Z85.118 Personal history of other malignant neoplasm of bronchus and lung; Z87.440 Personal history of urinary (tract) infections; Z98.42 Cataract extraction status, left eye; Z98.41 Cataract extraction status, right eye; Z68.22 Body mass index [BMI] 22.0-22.9, adult; Z95.0 Presence of cardiac pacemaker; Z79.899 Other long term (current) drug therapy; Z79.01 Long term (current) use of anticoagulants; Z87.891 Personal history of nicotine dependence; Z82.49 Family history of ischemic heart disease and other diseases of the circulatory system; Z80.9 Family history of malignant neoplasm, unspecified